=== PATIENT | female | born 1955 | race Caucasian/White ===

== ENCOUNTER 2020-04-09 12:35 | Outpatient (REF) | payer MEDICARE, SELFPAY ==
--- NOTE | 2020-04-09 12:47 | XR_ITS ---
EXAMINATION: XR PELVIS CLINICAL INFORMATION: Traumatic injury of the sacrum. COMPARISON: 09/22/2016 TECHNIQUE: AP view of the pelvis. FINDINGS: There are degenerative changes of the bilateral sacroiliac joints but both appear patent. The sacral ala are intact with no displaced sacral fracture seen. Mild degenerative arthrosis of the bilateral hips, left greater than right. XR/XR pelvis 1-2V IMPRESSION: No acute osseous abnormality of the pelvis or sacrum. Mild degenerative changes.
== END 2020-04-09 12:36 | disposition home or self-care (01) ==
LOC: HO.XRAY 12:35
PROVIDERS: PCP Internal Medicine; Visit Provider Physician Assistant
DX: S39.93XA Unspecified injury of pelvis, initial encounter (principal); X58.XXXA Exposure to other specified factors, initial encounter; R10.2 Pelvic and perineal pain; M53.3 Sacrococcygeal disorders, not elsewhere classified
CPT/HCPCS: 72170

== ENCOUNTER 2020-04-17 10:48 | Outpatient (REF) | payer MEDICARE, SELFPAY ==
--- NOTE | 2020-04-17 10:51 | CT_ITS ---
EXAMINATION: CT LUMBAR SPINE WITHOUT CONTRAST CLINICAL INFORMATION: Evaluate for fracture sacrum or coccyx. COMPARISON: None TECHNIQUE: Axial 3 mm thin and reformatted 2 mm thin sagittal and coronal images of sacral spine were obtained from L4-L5 disc level through the coccyx region. This CT examination was performed using dose optimization techniques as appropriate, variously including the following: *Automated exposure control *Adjustment of mA and/or kV according to patient size (this includes techniques or standardized protocols for targeted exams where dose is matched to indication/reason for exam; i.e. extremities or head) *Use of iterative reconstruction technique DLP; 294 mGy-cm FINDINGS: On sagittal reconstructed images the vertebral alignment is maintained. There is loss of L5-S1 disc height with vacuum disc phenomena. Small focal endplate Schmorl's node is seen at L4-L5 disc level. The sacral vertebral heights are normal. No visible acute fracture, dislocation or subluxation seen. No lytic process seen. There is a focal sclerotic density at S2 vertebra likely a small bone island. There is mild bilateral L4-L5 and L5-S1 facet joint arthropathy and hypertrophy. Visualized pelvic bones and bilateral hip joints are unremarkable. CT/CT lumbar spine wo con IMPRESSION: No visible acute fracture, dislocation or subluxation of sacral or coccygeal spine. Degenerative disc changes L5-S1 disc level with vacuum disc phenomena and mild L4-L5 and L5-S1 facet joint arthropathy.
== END 2020-04-17 10:49 | disposition home or self-care (01) ==
LOC: HO.CT 10:48
PROVIDERS: PCP Internal Medicine; Visit Provider Physician Assistant
DX: S39.92XS Unspecified injury of lower back, sequela (principal)
CPT/HCPCS: 72131

== ENCOUNTER 2020-06-15 12:51 | Outpatient (REF) | payer MEDICARE, SELFPAY ==
[2020-06-15 13:14] LABS: MANUAL DIFF FLAG NO
[2020-06-15 13:18] LABS: Basophils Percent Auto 0.8 % (0-2); Eosinophils Absolute Auto 0.1 X10*3/uL (0.0-0.4); Eosinophils Percent Auto 1.9 % (0-4); Hematocrit 39.3 % (37-47); Hemoglobin 12.8 g/dl (12.0-16.0); Imm Gran Abs Auto 0.01 X10*3/uL (0.00-0.03); Imm Gran Pct Auto 0.2 % (0.0-0.4); Lymphocytes Absolute Auto 1.3 X10*3/uL (1.2-4.9); Lymphocytes Percent Auto 24.6 % (20-40); Mean Corpuscular HGB Conc 32.6 g/dl (31.0-35.0); Mean Corpuscular Hemoglobin 30.4 pg (27.0-33.0); Mean Corpuscular Volume 93.3 fL (80-98); Mean Platelet Volume 9.6 fL (9.4-12.3); Monocytes Absolute Auto 0.5 X10*3/uL (0.1-1.2); Monocytes Percent Auto 10.5 % (2-11); Neutrophils Absolute Auto 3.2 X10*3/uL (2.0-8.3); Platelet Count 312 X10*3/uL (160-400); Red Blood Count 4.21 X10*6/uL (4.20-5.50); Red Cell Distribution Width 13.1 % (11.0-16.0); White Blood Count 5.2 X10*3/uL (4.8-10.8)
[2020-06-15 13:58] LABS: Alanine Aminotransferase 18 U/L (0-31); Albumin Level 4.4 g/dL (3.5-5.0); Alkaline Phosphatase 84 U/L (39-117); Anion Gap 12 (12-20); Aspartate Amino Transferase 28 U/L (5-31); Bilirubin Total 0.8 mg/dL (0.0-1.0); Blood Urea Nitrogen 16 mg/dL (9-16); Calcium 9.5 mg/dL (8.4-10.2); Carbon Dioxide 30 mmol/L (22-29); Chloride 104 mmol/L (96-108); Cholesterol 238 mg/dL; Estimated Glomerular Filt Rate > 60; Glucose Random 77 mg/dL (60-115); HDL Cholesterol 88 mg/dL; LDL Cholesterol Calculated 137 mg/dl; Potassium 5.1 mmol/L (3.3-5.1); Sodium 141 mmol/L (135-145); Total Protein 6.8 g/dL (6.5-8.0); Triglycerides 66 mg/dL
[2020-06-15 14:16] LABS: Vitamin D 25-OH Total 55.3 ng/mL (>30)
== END 2020-06-15 12:52 | disposition home or self-care (01) ==
LOC: HO.LAB 12:51
PROVIDERS: PCP Internal Medicine; Visit Provider Internal Medicine
DX: Z00.00 Encounter for general adult medical examination without abnormal findings (principal); Z13.6 Encounter for screening for cardiovascular disorders; Z13.820 Encounter for screening for osteoporosis
CPT/HCPCS: 36415; 80053; 80061; 82306; 85025

== ENCOUNTER 2020-06-19 15:16 | Outpatient (REF) | payer MEDICARE, SELFPAY ==
--- NOTE | ~2020-06-19 | MM_ITS ---
EXAMINATION: MM SCREENING DIGITAL BREAST TOMOSYNTHESIS, BILATERAL CLINICAL INFORMATION: Screening. Asymptomatic. The lifetime risk of breast cancer based on the Tyrer-Cuzick Model is 5%. COMPARISON: Mammography: 06/14/2019, 09/30/2016 TECHNIQUE: Digital breast tomosynthesis is performed in both the craniocaudal and mediolateral oblique views along with computer-aided detection (CAD). Synthesized 2D images are generated from the tomosynthesis. FINDINGS: The breasts are heterogeneously dense, which may obscure small masses (ACR BI-RADS breast composition Category c). There are no significant masses, abnormal calcifications, or other abnormalities. Parenchymal pattern is similar to prior exams. The axilla and skin contours are unremarkable. MM/MM tomosynthesis screening BI IMPRESSION: No mammographic evidence of malignancy. ASSESSMENT: BI-RADS 1: Negative RECOMMENDATION: Routine annual mammography screening. This patient's information was entered into a reminder system with a target due date for their next mammogram.
== END 2020-06-19 15:17 | disposition home or self-care (01) ==
LOC: HO.MAMMO 15:16
PROVIDERS: PCP Internal Medicine; Visit Provider Internal Medicine
DX: Z12.31 Encounter for screening mammogram for malignant neoplasm of breast (principal)
CPT/HCPCS: 77063; 77067

== ENCOUNTER 2020-08-23 18:19 | Emergency (ER) | payer MEDICARE, SELFPAY ==
--- NOTE | ~2020-08-23 | XR_ITS ---
EXAMINATION: XR WRIST, RIGHT CLINICAL INFORMATION: Wrist pain, status post fall. COMPARISON: None TECHNIQUE: Four views of the right wrist. FINDINGS: Subtle lucency and cortical angulation of the dorsal aspect of the distal radius, seen on the lateral projection. Overlying mild soft tissue swelling. In addition, there is subtle lucency along the lateral aspect of the distal radial metaphysis on the frontal projections. These findings could represent a subtle fracture. No additional discrete fractures identified. Mild spurring at the 1st CMC joint. Ulnar negative variance. XR/XR wrist RT min 3V IMPRESSION: Subtle findings in the distal radius, could represent a subtle undisplaced fracture. Please clinically correlate. Recommend short-term follow-up imaging for reassessment.
[2020-08-23 18:31] VITALS: BP 149/71; PULSE 80; RESP 18; TEMP 36.6; O2SAT 99; BMI 21.7
--- NOTE | 2020-08-23 19:25 | ED_ITS ---
HPI - Extremity Problem General Chief complaint: Extremity Injury, Upper Stated complaint: fall Time Seen by Provider: 08/23/20 19:25 Source: patient Mode of arrival: ambulatory Limitations: no limitations History of Present Illness HPI Narrative: Patient is a 64-year-old female with no significant past medical history complaining of right wrist pain. Patient states she was playing pickleball and tripped over her right foot and landed falling on her outstretched right hand. She states it was immediately painful, she is unable to move her wrist and has pain in her wrist when she moves her fingers. She states the pain is approximately a 7/10 but she will take medication when she gets home. She does have a prior injury on the distal ulna for which she needed surgery and has a chronic large bulge in that area. She had hand surgery in the past for that issue, Dr. Luna. Related Data Allergies Allergy/AdvReac Type Severity Reaction Status Date / Time Sulfa (Sulfonamide Allergy Mild UNKNOWN Verified 08/23/20 19:12 Antibiotics) nut - unspecified [nut] Allergy Unknown THROAT Verified 08/23/20 19:12 SWELLING erythromycin base AdvReac Mild VOMITING/STOMACH Verified 08/23/20 19:12 [Erythromycin Base] PAIN Review of Systems Review of Systems: Yes all other systems are reviewed and are negative [facility] Past Medical History Medical History Asthma Social History Social History Advance Directives: No Advance Directives Information Provided: No Physical Exam Vital Signs: Vital Signs: Last Vital Signs Temp 97.9 F 08/23/20 18:31 Pulse 80 08/23/20 18:31 Resp 18 08/23/20 18:31 BP 149/71 H 08/23/20 18:31 Pulse Ox 99 08/23/20 18:31 Body Mass Index 21.7 Const: General: cooperative, healthy appearing, comfortable and no acute distress Nutritional Appearance: average body habitus Orientation/consciousness: patient oriented x3 HENMT: Head: Yes normal to inspection, Yes No palpable skull fracture present, Yes normocephalic and Yes atraumatic Eyes: General: appearance normal, both eyes and all related structures Resp: Effort & Inspection: normal respiratory effort and able to speak in complete sentences Neuro: General: patient oriented x3 Extrem: Right upper extremity: wrist Details: normal to inspection, tenderness Location: of the distal radius and of the anatomic snuffbox, abnormal ROM Details: pain with active ROM during Details: with extension, with flexion, with ABduction and with ADduction and pain with passive ROM during Details: with extension, with flexion, with ABduction and with ADduction, normal vascular exam and radial pulse present; no unusual warmth and no abrasions and Extremity exam: right hand Details: normal to inspection, normal capillary refill, neuromotor exam normal, neurosensory exam normal, tendon exam normal and normal ROM of fingers; no tenderness, no unusual warmth, swelling, no abrasions, no lacerations, no ecchymosis, no foreign bodies and no puncture wound Course Reevaluation(s) Reevaluation #1: Text to Ortho, Ta-Emily Parkseuse xrays and pt info - to confirm sugar tons splint with follow up in a few days for additional imaging. She agrees with plan and will consult with Dr Joseph tomorrow for follow up date. Time: 19:51 Procedures Orthopedic Splinting/Casting Injury #1: Side: right Upper Extremity Injury Location: wrist Upper Extremity Immobilizer: sugar tong splint MDM - Extremity (Nontraumatic) Imaging Data right wrist x-ray: Attestation: I personally reviewed and interpreted this imaging study as follows: My impression: questionable fx distal radius Radiologist's impression: [address] [id number] ReportSigned Patient: Jyoti LongoriaMR#: [id number]: 5Acct:[id number]/Sex: 64 / FADM Date: 08/23/20Loc: HO.EDAttending Dr: Ordering Physician: Generic ED Physician Date of Service: 08/23/20 Procedure(s): XR wrist RT min 3V Accession Number(s): [id number] cc: Generic ED Physician~ EXAMINATION: XR WRIST, RIGHT CLINICAL INFORMATION: Wrist pain, status post fall. COMPARISON: None TECHNIQUE: Four views of the right wrist. FINDINGS: Subtle lucency and cortical angulation of the dorsal aspect of the distal radius, seen on the lateral projection. Overlying mild soft tissue swelling. In addition, there is subtle lucency along the lateral aspect of the distal radial metaphysis on the frontal projections. These findings could represent a subtle fracture. No additional discrete fractures identified. Mild spurring at the 1st CMC joint. Ulnar negative variance. XR/XR wrist RT min 3V IMPRESSION: Subtle findings in the distal radius, could represent a subtle undisplaced fracture. Please clinically correlate. Recommend short-term follow-up imaging for reassessment. Dictated By:TERRELL SUNSHINE MDSigned By:<Electronically signed by TERRELL SUNSHINE MD in OV>08/23/201914 DD/ 54TD/TT: Human Resources Temp: Discharge Plan Discharge Clinical Impression: Distal radius fracture, right Qualifiers: Encounter type: initial encounter Fracture type: closed Fracture morphology: unspecified fracture morphology Qualified Code(s): S52.501A - Unspecified fracture of the lower end of right radius, initial encounter for closed fracture Patient Disposition: Home, Self-Care Instructions: Wrist Fracture in Adults (ED), Splint Care (ED) Additional Instructions: Please be sure to follow up with either our orthopedic doctor or one of your choosing [facility] for additional imaging to clarify injury. You may alternate Tylenol and ibuprofen for your pain. Referrals: Quan Finley MD [Physician] - 2 days (additional imaging and care)
--- NOTE | 2020-08-23 20:21 | PC.NURSE ---
pt fitted with sugar tong splint. tolerated will and has good csm of fingers afterwards. ice applied ontop of spint. plans to f/u with hand surgeon.
== END 2020-08-23 20:53 | disposition home or self-care (01) ==
PROVIDERS: Emergency Provider Internal Medicine; PCP Internal Medicine
DX: S52.501A Unspecified fracture of the lower end of right radius, initial encounter for closed fracture (principal); M79.601 Pain in right arm; W01.0XXA Fall on same level from slipping, tripping and stumbling without subsequent striking against object, initial encounter; Y93.9 Activity, unspecified; Y92.9 Unspecified place or not applicable; Y99.9 Unspecified external cause status
CPT/HCPCS: 29105; 73110; 99283

== ENCOUNTER 2020-08-31 22:32 | Emergency (ER) | payer MEDICARE, SELFPAY ==
[2020-08-31 22:35] VITALS: BP 130/73; PULSE 60; RESP 16; TEMP 36.7; O2SAT 98; BMI 21.8
--- NOTE | 2020-08-31 23:27 | ED.HEATRA ---
HPI - Head Injury General Chief complaint: Head Injury Stated complaint: head lac from fall Source: patient Mode of arrival: ambulatory Limitations: no limitations History of Present Illness HPI Narrative: 64-year-old female with no significant past medical history presents with laceration to the back of her head after falling over while playing pickleball. Does not report any alcohol use, states she just tripped over her own feet. She does not report losing consciousness, denies any prodromal symptoms, and has a cast to the right wrist. MD Complaint: head injury Onset (ago): hour(s) (Within the hour of arrival) Mechanism of Injury: sports related injury Place: home Loss of Consciousness: no Location of injury: occipital Severity: moderate Severity scale (1-10): 4 Quality: dull and aching Radiation: none Other Injuries: none Associated symptoms: denies other symptoms Related Data Allergies Allergy/AdvReac Type Severity Reaction Status Date / Time Sulfa (Sulfonamide Allergy Mild UNKNOWN Verified 08/23/20 19:12 Antibiotics) nut - unspecified [nut] Allergy Unknown THROAT Verified 08/23/20 19:12 SWELLING erythromycin base AdvReac Mild VOMITING/STOMACH Verified 08/23/20 19:12 [Erythromycin Base] PAIN Review of Systems Review of Systems: Constitutional: No Fever, No Chills ENT/Mouth: No Ear Pain, No Hoarseness, No sore throat Eyes: No Eye Pain, No Swelling, No Redness, No Foreign Body Cardiovascular: No Chest Pain, No SOB Respiratory: No Cough, No Dyspnea Gastrointestinal: No Nausea, No Vomiting, No Diarrhea, No abdominal Pain Genitourinary: No Dysuria, No Hematuria Musculoskeletal: positive scalp pain, No Myalgias, No Joint Swelling Skin: Positive laceration to the occipital scalp, No rash Neuro: No Weakness, No Numbness, No Paresthesias, No Loss of Consciousness, No Dizziness, No Headache Psych: No Anxiety/Panic, No Depression Heme/Lymph: no easy bruising, no Lymphadenopathy Endocrine: No Polyuria, No Polydipsia PMFSH Past Medical History Attestation statement: The following information was validated with the patient. Source: old records reviewed Medical History Asthma Social History Social History Advance Directives: No Advance Directives Information Provided: No Physical Exam Vital Signs: Vital Signs: Last Vital Signs Temp 98.0 F 08/31/20 22:35 Pulse 60 08/31/20 22:35 Resp 16 08/31/20 22:35 BP 130/73 08/31/20 22:35 Pulse Ox 98 08/31/20 22:35 Body Mass Index 21.8 Appearance: Alert. Oriented X3. No acute distress. Head: 2 cm laceration to the scalp occipital, Normal external exam. Normocephalic. Atraumatic. No Skinner signs noted. No raccoon eyes noted Eyes: PERRLA. EOMI. Conjunctiva and sclera normal. Eyelids normal. ENT: TM's Normal. Pharynx normal. Uvula midline. Moist mucous membranes. No trismus noted. No drooling noted. No muffled voice noted. Neck: Normal inspection. Neck supple. No adenopathy. Thyroid Normal. No meningeal signs. No neck mass noted. CVS: Normal heart rate and rhythm. Heart sound normal. No murmurs noted. Pulses equal to all extremities. Respiratory: No respiratory distress. Painless inspiration. Breath sounds normal. No wheezes/rales/rhonchi noted. Chest nontender. No accessory muscle usage noted or decreased air movement noted. Abdomen: Soft and nontender. Bowel sounds normal in all 4 quadrants. No distention noted. No organomegaly noted. No visible injury noted. Back: No CVA tenderness. Full range of motion noted. Skin: Skin warm and dry. Normal skin color. Normal skin turgor. No rashes/lesions/lacerations noted. Extremities: Right wrist in a cast for fracture, Extremities exhibit normal range of motion. Extremities nontender. Neuro: cranial nerves 2-12 intact, no focal neural deficits, strength 5/5 to all extremities, No motor deficit. No sensory deficit. Reflexes normal. Course Course Course Narrative: 64-year-old female presents with laceration to the scalp after falling while playing pickle ball just prior to arrival. She does have a cast to the right wrist, has a wrist fracture from an injury sustained while playing pickle ball. Patient respectfully declined CT scan, states that she will monitor for signs and symptoms of concussion, respectfully declines Tdap vaccine as she recently received COVID vaccine approximately 1 month ago and is still having intermittent symptoms of nausea and dizziness. Patient request laceration repair. Irrigated with copious amounts of normal saline, 2 chase used to close the wound, well-approximated. Patient verbalizes understanding of and agrees to plan of care discharge home. Procedures Laceration Laceration 1: Site: scalp Size (cm): 2 Description: linear Depth: simple, single layer Pre-repair: wound explored and irrigated extensively Size (cm): other (Chase) Number of sutures: 2 MDM - Head Injury MDM Narrative Medical decision making narrative: Laceration Differential Diagnosis Differential diagnosis: Likely concussion without loss of consciousness Medical Records Attestation: I reviewed the patient's medical records. Discharge Plan Discharge Clinical Impression: Laceration of scalp, Concussion Patient Disposition: Home, Self-Care Instructions: Concussion (ED), Staple Care (ED), Head Laceration (ED) Additional Instructions: You were evaluated for laceration to the scalp. Please return in 10 days to have chase removed. Monitor for signs and symptoms of dizziness, intractable nausea and vomiting, loss of balance, changes in vision, or any other concerning symptoms. These could be signs and symptoms of intracranial bleeding. You did respectfully declined the CT scan today. You respectfully declined a Tdap vaccine. Please follow-up with primary care physician in the next week. Thank you for choosing this emergency department for evaluation. Please follow-up with primary care physician as needed. Return to the emergency department for any new, concerning, or worsening symptoms. Interventions: ED Discharge Assessment Last Done: 08/31/20 23:42 Discharge Date/Time: 08/31/20 23:45
== END 2020-08-31 23:45 | disposition home or self-care (01) ==
PROVIDERS: Emergency Provider Internal Medicine; PCP Internal Medicine
DX: S01.01XA Laceration without foreign body of scalp, initial encounter (principal); S06.0X0A Concussion without loss of consciousness, initial encounter; W01.0XXA Fall on same level from slipping, tripping and stumbling without subsequent striking against object, initial encounter; Y93.73 Activity, racquet and hand sports; Y92.096 Garden or yard of other non-institutional residence as the place of occurrence of the external cause; Y99.9 Unspecified external cause status
CPT/HCPCS: 12001; 99284

== ENCOUNTER 2020-09-23 10:51 | Outpatient (REF) | payer MEDICARE, SELFPAY ==
--- NOTE | ~2020-09-23 | CT_ITS ---
EXAMINATION: CT HEAD WITHOUT CONTRAST CLINICAL INFORMATION: Injury to head. COMPARISON: None TECHNIQUE: Contiguous axial imaging was performed from the skull base to vertex without intravenous administration of contrast. This CT examination was performed using dose optimization techniques as appropriate, variously including the following: *Automated exposure control *Adjustment of mA and/or kV according to patient size (this includes techniques or standardized protocols for targeted exams where dose is matched to indication/reason for exam; i.e. extremities or head) *Use of iterative reconstruction technique DLP: 737 mGy-cm FINDINGS: There is no evidence of acute intracranial hemorrhage or territorial infarction. No abnormal mass effect or midline shift is seen. Wlalace to white matter differentiation is well preserved. No extra-axial fluid collections are identified. The ventricles are normal in size. There is no abnormal attenuation within the brain parenchyma. The osseous structures and soft tissues are normal. The mastoid air cells and visualized portions of the paranasal sinuses are well aerated. CT/CT head/brain wo con IMPRESSION: No acute intracranial process seen.
== END 2020-09-23 10:52 | disposition home or self-care (01) ==
LOC: HO.CT 10:51
PROVIDERS: PCP Internal Medicine; Visit Provider Internal Medicine
DX: S09.90XA Unspecified injury of head, initial encounter (principal)
CPT/HCPCS: 70450

== ENCOUNTER 2021-06-21 10:01 | Outpatient (REF) | payer MEDICARE, SELFPAY ==
--- NOTE | ~2021-06-21 | MM_ITS ---
EXAMINATION: MM SCREENING DIGITAL BREAST TOMOSYNTHESIS, BILATERAL CLINICAL INFORMATION: Screening. Asymptomatic. The lifetime risk of breast cancer based on the Tyrer-Cuzick Model is 4%. COMPARISON: Mammography: 06/19/2020, 06/14/2019, 09/30/2016 TECHNIQUE: Digital breast tomosynthesis is performed in both the craniocaudal and mediolateral oblique views along with computer-aided detection (CAD). Synthesized 2D images are generated from the tomosynthesis. FINDINGS: The breasts are heterogeneously dense, which may obscure small masses (ACR BI-RADS breast composition Category c). There are no significant masses, abnormal calcifications, or other abnormalities. Parenchymal pattern is similar to prior studies. There is no developing density or architectural abnormality. The axilla and skin contours are unremarkable. No significant changes. MM/MM tomosynthesis screening BI IMPRESSION: No significant changes from prior exams. ASSESSMENT: BI-RADS 1: Negative RECOMMENDATION: Routine annual mammography screening. This patient's information was entered into a reminder system with a target due date for their next mammogram.
== END 2021-06-21 10:02 | disposition home or self-care (01) ==
LOC: HO.MAMMO 10:01
PROVIDERS: PCP Internal Medicine; Visit Provider Internal Medicine
DX: Z12.31 Encounter for screening mammogram for malignant neoplasm of breast (principal)
CPT/HCPCS: 77063; 77067

== ENCOUNTER 2021-10-06 16:50 | Outpatient (REF) | payer MEDICARE, SELFPAY ==
[2021-10-06 17:03] LABS: MANUAL DIFF FLAG NO
[2021-10-06 17:45] LABS: Basophils Percent Auto 0.5 % (0-2); Eosinophils Absolute Auto 0.1 X10*3/uL (0.0-0.4); Eosinophils Percent Auto 1.1 % (0-4); Hematocrit 33.5 % (37.0-47.0); Hemoglobin 10.3 g/dl (12.0-16.0); Imm Gran Abs Auto 0.02 X10*3/uL (0.00-0.03); Imm Gran Pct Auto 0.3 % (0.0-0.4); Lymphocytes Absolute Auto 1.1 X10*3/uL (1.2-4.9); Lymphocytes Percent Auto 15.1 % (20-40); Mean Corpuscular HGB Conc 30.7 g/dl (31.0-35.0); Mean Corpuscular Hemoglobin 28.1 pg (27.0-33.0); Mean Corpuscular Volume 91.3 fL (80.0-98.0); Mean Platelet Volume 9.5 fL (9.4-12.3); Monocytes Absolute Auto 0.7 X10*3/uL (0.1-1.2); Monocytes Percent Auto 9.9 % (2-11); Neutrophils Absolute Auto 5.4 x10*3/uL (2.0-8.3); Neutrophils Percent Auto 73.1 % (45-73); Platelet Count 349 X10*3/uL (160-400); Red Blood Count 3.67 X10*6/uL (4.20-5.50); Red Cell Distribution Width 15.4 % (11.0-16.0); White Blood Count 7.4 X10*3/uL (4.8-10.8)
[2021-10-06 18:19] LABS: Alanine Aminotransferase 19 U/L (0-31); Albumin Level 4.2 g/dL (3.5-5.0); Alkaline Phosphatase 96 U/L (39-117); Anion Gap 13 (12-20); Aspartate Amino Transferase 30 U/L (5-31); Bilirubin Total 0.3 mg/dL (0.0-1.0); Blood Urea Nitrogen 16 mg/dL (9-16); Calcium 9.3 mg/dL (8.4-10.2); Carbon Dioxide 27 mmol/L (22-29); Chloride 106 mmol/L (96-108); Estimated Glomerular Filt Rate > 60; Glucose Random 83 mg/dL (60-115); Potassium 4.5 mmol/L (3.3-5.1); Sodium 141 mmol/L (135-145); Total Protein 6.4 g/dL (6.5-8.0)
[2021-10-06 18:35] LABS: Erythrocyte Sedimentation Rate 6 MM/HR (0-20)
== END 2021-10-06 16:51 | disposition home or self-care (01) ==
LOC: HO.LAB 16:50
PROVIDERS: PCP Internal Medicine; Visit Provider Internal Medicine
DX: R63.4 Abnormal weight loss (principal)
CPT/HCPCS: 36415; 80053; 84443; 85025; 85652

== ENCOUNTER 2021-10-08 08:20 | Outpatient (REF) | payer MEDICARE, SELFPAY ==
--- NOTE | ~2021-10-08 | FL_ITS ---
EXAMINATION: XR FLUOROSCOPY UPPER GI WITH AIR CLINICAL INFORMATION: Abnormal weight loss. COMPARISON: None TECHNIQUE: Routine upper GI air-contrast study was performed in upright and lying position. FINDINGS: Following oral administration of thick barium and effervescent granules there is normal propagation of bolus from the oral cavity through the pharynx, esophagus into stomach without any evidence of obstruction, narrowing or stricture. On placing patient supine and prone the course, caliber and peristalsis of the stomach duodenal bulb and the CBD is normal. There is mild gastroesophageal reflux without hiatal hernia. The mucosal pattern of esophagus, stomach and the duodenum is normal. FLUOROSCOPY TIME: 1.6 minutes DOSE AREA PRODUCT: 9.095 uGy-m2 (microgray-meter squared) FL/FL upper GI w air IMPRESSION: Moderate gastroesophageal reflux without hiatal hernia.
[2021-10-08 15:45] LABS: INTERNATIONAL NORM RATIO 0.9 (0.9-1.1); Prothrombin Time 10.1 SEC (10.0-13.1)
[2021-10-08 16:04] LABS: Iron 23 mcg/dL (30-160); Percent Iron Saturation 6 % (15-50); Total Iron Binding Capacity 417 mcg/dL (228-428); Unsaturated Iron Binding 394 ug/dL
[2021-10-08 16:29] LABS: Ferritin 8 ng/mL (10-250)
[2021-10-08 16:45] LABS: Folate > 20.0 ng/mL (> or = 4.0); Vitamin B12 877 pg/mL (200-900)
== END 2021-10-08 08:21 | disposition home or self-care (01) ==
LOC: HO.XRAY 08:20
PROVIDERS: Absent Provider Physician Assistant; PCP Internal Medicine; Visit Provider Internal Medicine
DX: D64.9 Anemia, unspecified (principal); R63.4 Abnormal weight loss
CPT/HCPCS: 36415; 74246; 82607; 82728; 82746; 83540; 85610

== ENCOUNTER 2021-10-20 15:30 | Outpatient (REF) | payer MEDICARE, SELFPAY ==
[2021-10-20 16:31] LABS: IDNOW Serial# 08D9AD1C
[2021-10-20 16:32] LABS: COVID-19 Test Negative (Negative)
== END 2021-10-20 15:31 | disposition home or self-care (01) ==
LOC: HO.LAB 15:30
PROVIDERS: Visit Provider Internal Medicine
DX: Z20.822 Contact with and (suspected) exposure to COVID-19 (principal)
CPT/HCPCS: 87635; C9803

== ENCOUNTER 2021-10-20 15:51 | Outpatient (REF) | payer MEDICARE, SELFPAY | END 2021-10-20 15:52 | disposition home or self-care (01) | LOC: HO.LAB 15:51 | PROVIDERS: PCP Internal Medicine; Visit Provider Physician Assistant | DX: Z13.89 Encounter for screening for other disorder (principal) ==

== ENCOUNTER 2022-01-18 15:55 | Outpatient (REF) | payer MEDICARE, SELFPAY ==
--- NOTE | ~2022-01-18 | XR_ITS ---
EXAMINATION: XR RIBS, BILATERAL CLINICAL INFORMATION: Chest and bilateral ribs. COMPARISON: None TECHNIQUE: 3 views of the bilateral ribs were obtained. FINDINGS: The lungs are well expanded and clear of acute pneumonic process. The heart size and pulmonary vascularity are normal. No gross bony abnormality seen. Multiple views of bilateral ribs reveal no visible rib fracture or bony abnormality. The soft tissues are normal. XR/XR ribs BI min 4V w CXR1V IMPRESSION: Unremarkable chest and bilateral rib exam.
[2022-01-18 18:22] LABS: Appearance Urine Clear; Color Urine Yellow; Glucose Urine UA Negative (Negative); Leukocyte Esterase Urine Negative (Negative); Nitrite Urine Negative (Negative); PH 7.5 (5.0-9.0); Urine Blood Negative (Negative); Urine Ketones Negative (Negative); Urine Protein Negative (Neg-Trace)
== END 2022-01-18 15:56 | disposition home or self-care (01) ==
LOC: HO.MANLDS 15:55
PROVIDERS: Visit Provider Physician Assistant
DX: R07.81 Pleurodynia (principal); R30.0 Dysuria
CPT/HCPCS: 71111; 81003

== ENCOUNTER → 2022-01-24 13:00 | Outpatient (REF) | payer MEDICARE, SELFPAY ==
--- NOTE | 2022-01-24 13:10 | CA_ITS ---
Transthoracic Echocardiogram Patient (Last, First, Middle): Jyoti Longoria, Gender: Female Date of : 1955 Age: 66 Procedure Date: 01/24/2022 Procedure Type: Transthoracic Echocardiogram Location: OP Height: 157.48 cm Weight: 49.9 kg BSA: 1.48 m2 Heart Rate: bpm BP: 110 / 60 mmHg Leader Tier: DECLAN Referring MD: Brianna BAL Symptoms: R07.89 Study Quality: Adequate ECG Rhythm: Sinus Conclusions: - The left ventricular systolic function is normal. The visually estimated ejection fraction is between 60-65%. - No obvious valvular pathology seen on this study. Findings Left Ventricle Normal left ventricular cavity size. There is normal left ventricular wall thickness. The left ventricular systolic function is normal. The visually estimated ejection fraction is between 60-65%. There is no evidence of regional wall motion abnormalities. Diastolic function is normal for age. Right Ventricle Normal right ventricular cavity size and systolic function. Atria Both atria are normal in size. Aortic Valve There is a normal trileaflet aortic valve. There is no aortic valve stenosis. There is no aortic valve regurgitation. Mitral Valve The mitral valve appears normal. There is trace mitral valve regurgitation. There is no mitral valve stenosis. Pulmonic Valve The pulmonic valve is likely normal. Tricuspid Valve Normal tricuspid valve structure. There is mild tricuspid valve regurgitation. There is no evidence of pulmonary hypertension. Great Vessels The asc aorta is normal in size. Venous The inferior vena cava is normal in size and collapses greater than 50% with inspiration. Pericardium/Pleural There is no evidence of pericardial effusion. Prior Study Comparison No prior study available for comparison. Recommendations, Care & Conclusions No obvious valvular pathology seen on this study. Measurements 2D Linear Measurements IVSd: 0.75 0.6-0.9/0.6-1.0 cm LVIDd: 3.81 3.9-5.3/4.2-5.9 cm LVIDd Index: 2.57 2.4-3.2/2.2-3.1 cm/m2 LVIDs: 2.31 2.0-3.6 cm LVPWd: 0.96 0.7-1.1 cm LA Diam: 2.90 2.7-3.8/3.0-4.0 cm LAIDs Index: 1.96 1.5-2.3 cm/m2 LV Mass: 117.03 67-162/88-224 g LV Mass Index: 79.07 43-95/49-115 g/m2 LVOT Diam: 2.00 3.0+(-)1.3 cm Mitral Valve MV Pk E: 0.69 MV PK A: 0.45 MV Decel Time: 181.00 E/A: 1.50 E'Lateral: 9.14 E'Medial: 8.70 E/E' Med: 7.90 E/E' Lat: 7.50 PHT: 53.00 MVA PHT: 4.15 Decel [place]: 3.79 Aortic Valve AoV Pk Jameel: 1.31 AoV Mn Jameel: 0.98 AoV VTI: 0.31 AoV Pk Grad: 7.00 Aov Mn Grad: 4.00 ESSENCE Cont.VTI: 1.72 LVOT LVOT Pk Jameel: 0.80 LVOT Mn Jameel: 0.51 LVOT VTI: 0.17 LVOT Pk Grad: 3.00 LVOT Mn Grad: 1.00 LVOT Diam: 2.00 LVOT Area: 3.14 Diastolic Function MV Pk E: 0.69 MV Pk A: 0.45 E/A: 1.50 E'Medial: 8.70 E/E' Med: 7.90 E' Laterial: 9.14 E/E' Lat: 7.50 Right Ventricle TAPSE (mm): 24.60 TVS' Jameel: 12.60 Tricuspid Valve TR Pk Jameel: 2.52 TR Pk Grad: 25.00 RA Press: 3.00 RVSP: 28.00 Great Vessels Aorta Sinus of Valsalva: 3.50 2.0-3.[address] [place]: 2.48 1.7-3.4 cm Ao Asc: 2.90 2.1-3.4 cm Updated in Other Vendor System with Status of Final Alfonso Wilson MD electronically signed on 01/24/2022 2:53:39 PM with status of Final
== END ==
LOC: HO.CARD 13:00
PROVIDERS: Visit Provider Physician Assistant
DX: R07.89 Other chest pain (principal)
CPT/HCPCS: 93306

== ENCOUNTER 2022-02-17 08:49 | Outpatient (REF) | payer MEDICARE, SELFPAY ==
--- NOTE | ~2022-02-17 | CT_ITS ---
EXAMINATION: CT CHEST WITHOUT CONTRAST CLINICAL INFORMATION: Dyspnea. COMPARISON: Chest x-ray 01/18/2022. TECHNIQUE: Multidetector volumetric CT imaging of the chest was done. Axial MIP volume rendering provided. Sagittal and coronal reformatted images were obtained. This CT examination was performed using dose optimization techniques as appropriate, variously including the following: *Automated exposure control *Adjustment of mA and/or kV according to patient size (this includes techniques or standardized protocols for targeted exams where dose is matched to indication/reason for exam; i.e. extremities or head) *Use of iterative reconstruction technique DLP: 106 mGy-cm FINDINGS: HIGHWAY TRUCK DRIVER: Well-inflated lungs. LUNGS: The lungs are well expanded with plate-like atelectasis/focal small consolidation in the right middle lobe. There are patchy atelectatic changes seen in the posterior segment of right upper lobe, axial image 14/4. There are multiple small pulmonary nodules. 3 mm nodule, likely debris within the bronchial in left upper lobe axial image 173/7, 2 mm nodule left upper lobe axial image 263/7, 2 mm nodule right upper lobe medially axial image 188/7, 3 mm nodule right middle lobe axial image 286/7, 1 mm nodule right middle lobe axial image 314/7. There are several additional 1 mm nodules visualized. MEDIASTINUM: The heart size and the great vessels are normal caliber. No pericardial effusion seen. Central trachea and bronchi are widely patent. There are small shotty lymph nodes in the aortic window and the pretracheal space with the largest lymph node measuring 1.0 cm in the aortic window axial image 23/3. CORONARY ARTERY CALCIFICATION: None visualized on this study. PLEURA: There is no pleural effusion. No pleural mass or thickening. AXILLA: No lymphadenopathy. UPPER ABDOMEN: The visualized liver, spleen, pancreas, and bilateral adrenal glands are unremarkable. OSSEOUS STRUCTURES: No aggressive lytic or sclerotic process seen. CT/CT chest wo IV con IMPRESSION: Focal atelectasis/small consolidation right middle lobe medially. Mild atelectatic changes right upper lobe laterally. Multiple small pulmonary nodules in the range of 2-3 mm, as described above. Based on clinical history, a followup can be performed in 1 year. Fleischner guidelines were followed.
== END 2022-02-17 08:50 | disposition home or self-care (01) ==
LOC: HO.CT 08:49
PROVIDERS: Visit Provider Physician Assistant
DX: R06.00 Dyspnea, unspecified (principal)
CPT/HCPCS: 71250

== ENCOUNTER 2022-06-01 16:45 | Outpatient (REF) | payer MEDICARE, SELFPAY ==
--- NOTE | ~2022-06-01 | XR_ITS ---
EXAMINATION: XR KNEE, RIGHT CLINICAL INFORMATION: Pain COMPARISON: None TECHNIQUE: Three views of the right knee. FINDINGS: Bone alignment is normal. No fracture or dislocation. Normal femoral tibial joints. Slight lateral tilt of the patella. No joint effusion. XR/XR knee RT 3V IMPRESSION: Slight lateral tilt of the patella on the sunrise view otherwise unremarkable exam.
== END 2022-06-01 16:46 | disposition home or self-care (01) ==
LOC: HO.XRAY 16:45
PROVIDERS: PCP Internal Medicine; Visit Provider Internal Medicine
DX: M25.561 Pain in right knee (principal)
CPT/HCPCS: 73562

== ENCOUNTER 2022-06-23 10:26 | Outpatient (REF) | payer MEDICARE, SELFPAY ==
--- NOTE | ~2022-06-23 | MM_ITS ---
EXAMINATION: MM SCREENING DIGITAL BREAST TOMOSYNTHESIS, BILATERAL CLINICAL INFORMATION: Screening. Asymptomatic. The lifetime risk of breast cancer based on the Tyrer-Cuzick Model is 6%. COMPARISON: Mammography: 06/21/2021 and studies dating back to 09/30/2016 TECHNIQUE: Digital breast tomosynthesis is performed in both the craniocaudal and mediolateral oblique views along with computer-aided detection (CAD). Synthesized 2D images are generated from the tomosynthesis. FINDINGS: The breasts are extremely dense, which lowers the sensitivity of mammography (ACR BI-RADS breast composition Category d). There are no new significant masses, abnormal calcifications, or other abnormalities. There is question of abnormal density with possible calcifications about the lateral aspect of the right breast on craniocaudal projection. However, a second craniocaudal projection demonstrated this to have represented superimposition of fibroglandular tissue. MM/MM tomosynthesis screening BI IMPRESSION: No significant changes from prior exam. ASSESSMENT: BI-RADS 1: Negative RECOMMENDATION: Routine annual mammography screening. This patient's information was entered into a reminder system with a target due date for their next mammogram.
== END 2022-06-23 10:27 | disposition home or self-care (01) ==
LOC: HO.MAMMO 10:26
PROVIDERS: PCP Internal Medicine; Visit Provider Internal Medicine
DX: Z12.31 Encounter for screening mammogram for malignant neoplasm of breast (principal)
CPT/HCPCS: 77063; 77067

== ENCOUNTER 2023-03-20 14:35 | Emergency (ER) | payer MEDICARE, SELFPAY ==
[2023-03-20 15:06] VITALS: BP 165/68; PULSE 59; RESP 18; TEMP 36.2; O2SAT 98; BMI 21.0
--- NOTE | 2023-03-20 15:07 | ED_ITS ---
HPI - General Adult General Chief complaint: Wound/Laceration Stated complaint: Thumb lac Time Seen by Provider: 03/20/23 17:38 History of Present Illness HPI narrative: Pt is a 67yo female who presents to the ED with a left thumb laceration. Pt states she was sharpening her knife and the guard slipped and she cut her thumb. Pt states she is up to date with her tetanus vaccine. Related Data Allergies Allergy/AdvReac Type Severity Reaction Status Date / Time Sulfa (Sulfonamide Allergy Mild UNKNOWN Verified 03/20/23 15:08 Antibiotics) nut - unspecified [nut] Allergy Unknown THROAT Verified 03/20/23 15:08 SWELLING erythromycin base AdvReac Mild VOMITING/STOMACH Verified 03/20/23 15:08 [Erythromycin Base] PAIN Review of Systems 2 Musculoskeletal: Musculoskeletal: Denies arthralgias, Denies numbness and Denies tingling Integumentary/Breasts: Skin/Breast: Reports wounds (laceration of left thumb) Neurologic: Denies numbness and Denies tingling PMFSH Past Medical History Medical History Asthma Social History Social History Advance Directives: No Advance Directives Information Provided: Yes Physical Exam ED Vital Signs: Vital Signs - 24 hr 03/20/23 15:06 Temperature 97.2 F Pulse Rate 59 Respiratory Rate 18 Blood Pressure 165/68 H Pulse Oximetry 98 Oxygen Delivery Method Room Air BMI result Body Mass Index 21.0 Extrem Right upper extremity: normal to inspection Left upper extremity: full ROM, normal capillary refill and hand Details: neuromotor exam normal, neurosensory exam normal, tendon exam normal and laceration (lateral left thumb 3cm) Hand/finger images: 2 1. approx 3 cm linear laceration Right lower extremity: normal to inspection Left lower extremity: normal to inspection Course Course Course Narrative: Patient complains of left thumb laceration No sign of tendon deficit, sensation intact This is rapid medical exam done in triage pending full evaluation and dispo by ER provider Medications Administered Discontinued Medications Generic Name Dose Route Start Last Admin Trade Name Freq PRN Reason Stop Dose Admin Lidocaine HCl 5 ml 03/20/23 17:54 03/20/23 17:59 Lidocaine Hcl 1 % Mpf 5 Ml Vial INFILTRATI 03/20/23 17:55 5 ml ONCE ONE Administration Procedures Laceration Laceration 1: Site: hand (lateral thumb) Side (If applicable): left Size (cm): 3 Description: linear Depth: simple, single layer Local Anesthetic: lidocaine 1% Amount of anesthesia used (mL): 3 Pre-repair: wound explored, irrigated extensively and deep structures intact Skin layer closed with: nylon Size (cm): 5-0 Number of sutures: 3 Technique: simple, interrupted Medical Decision Making Medical Decision Making MDM Narrative: 67-year-old female presents for evaluation of laceration to her left thumb. Appears quite superficial. Bleeding is controlled. No evidence of ligamentous injury. Patient has full range of motion. Patient's tetanus is up-to-date. See procedure note for wound repair Differential Diagnosis Differential Diagnoses: The differential diagnosis associated with the presentation includes (laceration requiring closure, laceration not requiring closure, well visit, tetanus exposure, tendon damage) Discharge Plan Discharge Clinical Impression: Laceration Patient Disposition: Home, Self-Care Instructions: Finger Laceration (ED) Additional Instructions: You had 3 sutures placed today. Keep the area clean and dry Return in 10-14 days to have the sutures removed Follow-up with your primary doctor Interventions: ED Discharge Assessment Last Done: 03/20/23 18:33 Discharge Date/Time: 03/20/23 18:34
[2023-03-20] MEDS: Lidocaine HCl 1 % MPF 5 ML VIAL INFILTRATI (17:59)
== END 2023-03-20 18:34 | disposition home or self-care (01) ==
PROVIDERS: Emergency Provider Emergency Medicine; PCP Internal Medicine
DX: S61.012A Laceration without foreign body of left thumb without damage to nail, initial encounter (principal); W26.0XXA Contact with knife, initial encounter; Y93.89 Activity, other specified; Y92.9 Unspecified place or not applicable; Y99.9 Unspecified external cause status
CPT/HCPCS: 12002; 99282; 99284

== ENCOUNTER 2023-05-25 12:05 | Outpatient (REF) | payer MEDICARE, SELFPAY ==
[2023-05-25 12:22] LABS: MANUAL DIFF FLAG NO
[2023-05-25 13:31] LABS: Basophils Absolute Auto 0.1 X10*3/uL (0.0-0.2); Basophils Percent Auto 0.9 % (0-2); Eosinophils Absolute Auto 0.1 X10*3/uL (0.0-0.4); Eosinophils Percent Auto 0.9 % (0-4); Hematocrit 42.1 % (37.0-47.0); Hemoglobin 13.3 g/dl (12.0-16.0); Imm Gran Abs Auto 0.02 X10*3/uL (0.00-0.03); Imm Gran Pct Auto 0.3 % (0.0-0.4); Mean Corpuscular HGB Conc 31.6 g/dl (31.0-35.0); Mean Corpuscular Hemoglobin 28.5 pg (27.0-33.0); Mean Corpuscular Volume 90.3 fL (80.0-98.0); Mean Platelet Volume 9.7 fL (9.4-12.3); Monocytes Absolute Auto 0.7 X10*3/uL (0.1-1.2); Monocytes Percent Auto 10.2 % (2-11); Neutrophils Absolute Auto 4.8 x10*3/uL (2.0-8.3); Neutrophils Percent Auto 72.7 % (45-73); Platelet Count 409 X10*3/uL (160-400); Red Blood Count 4.66 X10*6/uL (4.20-5.50); Red Cell Distribution Width 15.4 % (11.0-16.0); White Blood Count 6.7 X10*3/uL (4.8-10.8)
[2023-05-25 14:00] LABS: Alanine Aminotransferase 17 U/L (0-31); Albumin Level 4.5 g/dL (3.5-5.0); Alkaline Phosphatase 104 U/L (39-117); Anion Gap 13 (12-20); Aspartate Amino Transferase 22 U/L (5-31); Bilirubin Total 0.6 mg/dL (0.0-1.0); Blood Urea Nitrogen 22 mg/dL (9-16); Calcium 9.6 mg/dL (8.4-10.2); Carbon Dioxide 28 mmol/L (22-29); Chloride 105 mmol/L (96-108); Cholesterol 253 mg/dL (<200); Estimated Glomerular Filt Rate > 60; Glucose Random 88 mg/dL (60-115); HDL Cholesterol 99 mg/dL (>40); Iron 37 mcg/dL (30-160); LDL Cholesterol Calculated 144 mg/dL (<100); Percent Iron Saturation 9 % (15-50); Potassium 4.3 mmol/L (3.3-5.1); Sodium 142 mmol/L (135-145); Total Iron Binding Capacity 403 mcg/dL (228-428); Total Protein 7.5 g/dL (6.5-8.0); Triglycerides 50 mg/dL (<150); Unsaturated Iron Binding 366 ug/dL
[2023-05-25 14:04] LABS: Ferritin 13 ng/mL (10-250); Vitamin D 25-OH Total 88.3 ng/mL (>30)
== END 2023-05-25 12:06 | disposition home or self-care (01) ==
LOC: HO.LAB 12:05
PROVIDERS: Visit Provider Internal Medicine
DX: Z00.00 Encounter for general adult medical examination without abnormal findings (principal); D50.9 Iron deficiency anemia, unspecified
CPT/HCPCS: 36415; 80053; 80061; 82306; 82728; 83540; 85025

== ENCOUNTER 2023-06-07 08:15 | Outpatient (REF) | payer MEDICARE, SELFPAY ==
--- NOTE | ~2023-06-07 | MM_ITS ---
EXAMINATION: BONE DENSITOMETRY CLINICAL INDICATION: Age-related osteoporosis without current pathological fracture. COMPARISON: This is the patient's baseline examination. TECHNIQUE: Using a [employer] DXA System (software version: 13.1) manufactured by [employer], dual-energy x-ray absorptiometry was performed of the lumbar spine and left hip. The images are of good technical quality. Summary results are attached. FINDINGS: LEFT FEMUR, NECK: BMD 0.619 g/cm2, Z-score -1.1, T-score -3.0, osteoporosis. LEFT FEMUR, TOTAL: BMD 0.721 g/cm2, Z-score -0.6, T-score -2.3, osteopenia. AP SPINE L1-L4: BMD 1.385 g/cm2, Z-score 3.8, T-score 1.7, normal. IDENTIFIED RISK FACTORS: Menopause, osteoporosis, history of fracture (adult). HISTORY OF FRACTURE: Forearm. MEDICATIONS: Calcium supplements or multivitamin, vitamin D. MM/XR DEXA axial skeleton IMPRESSION: 1. DIAGNOSIS: Severe osteoporosis based on the lowest T-score value of -3.0 in the femoral neck and history of fracture applying World Health Organization criteria. 2. 10-YEAR FRACTURE RISK PREDICTION, FRAX: According to the guidelines, FRAX calculation should only be performed on patients in the osteopenia bone density category. Therefore, FRAX was not performed on this patient. 3. Treatment Recommendations: NOF guidelines recommend consideration for treatment in postmenopausal women and men age 50 and older presenting with the following: -A hip or vertebral (clinical or morphometric) fracture. -T-score less than or equal to -2.5 at the femoral neck or spine after appropriate evaluation to exclude secondary causes. -Low bone mass at the hip or spine and a 10-year fracture probability by FRAX of greater than or equal to 3% for hip fracture or greater than or equal to 20% for major osteoporotic fracture based on the [place] adapted WHO algorithm. 4. Other Recommendations: All treatment decisions require clinical judgment and consideration of individual patient factors, including patient preferences, comorbidities, previous drug use, risk factors not captured in the FRAX model (e.g. frailty, falls, vitamin D deficiency, increased bone turnover, interval significant decline in bone density) and possible under or overestimation of fracture risk by FRAX. Additional medical evaluation for secondary cause of low bone mineral density may be appropriate. FUTURE SCAN RECOMMENDATION: People with diagnosed cases of osteoporosis or at high risk for fracture should have regular bone mineral density tests. For patients eligible for Medicare, routine testing is allowed once every 2 years. The testing frequency can be increased to one year for patients who have rapidly progressing disease, those who are receiving or discontinuing medical therapy to restore bone mass, or have additional risk factors.
== END 2023-06-07 08:16 | disposition home or self-care (01) ==
LOC: HO.MAMMO 08:15
PROVIDERS: PCP Internal Medicine; Visit Provider Internal Medicine
DX: Z13.820 Encounter for screening for osteoporosis (principal); Z78.0 Asymptomatic menopausal state; M81.0 Age-related osteoporosis without current pathological fracture
CPT/HCPCS: 77080

== ENCOUNTER 2023-07-05 07:28 | Outpatient (REF) | payer MEDICARE, SELFPAY | END 2023-07-05 07:29 | disposition home or self-care (01) | LOC: HO.MAMMO 07:28 | PROVIDERS: PCP Internal Medicine; Visit Provider Internal Medicine | DX: Z12.31 Encounter for screening mammogram for malignant neoplasm of breast (principal) | CPT/HCPCS: 77063; 77067 ==

== ENCOUNTER → 2023-07-05 07:30 | Outpatient (BNV) | payer MEDICARE, SELFPAY | PROVIDERS: PCP Internal Medicine; Visit Provider Radiology Diagnostic Radiology | DX: Z12.31 Encounter for screening mammogram for malignant neoplasm of breast (principal) | CPT/HCPCS: 77063; 77067 ==

== ENCOUNTER 2024-03-04 15:53 | Outpatient (REF) | payer MEDICARE, SELFPAY ==
--- NOTE | ~2024-03-04 | XR_ITS ---
EXAMINATION: XR CHEST CLINICAL INFORMATION: Acute bronchitis COMPARISON: X-ray chest and ribs of 01/18/2022. TECHNIQUE: 2 views of the chest were obtained. FINDINGS: The lungs are well-inflated. There is no gross pneumothorax. Heart size is normal. Degenerative changes in the thoracic spine. No significant pleural effusion. No gross focal consolidation. XR/XR chest 2V IMPRESSION: No gross focal consolidation to suggest pneumonia. This study was presented today March 05, 2024 for interpretation. Stat results provided at this time as requested by referring provider. Electronically signed by: Safia Castellon MD 03/05/2024 10:55 AM HELGA
== END 2024-03-04 15:54 | disposition home or self-care (01) ==
LOC: HO.XRAY 15:53
PROVIDERS: PCP Internal Medicine; Visit Provider Physician Assistant
DX: J20.8 Acute bronchitis due to other specified organisms (principal)
CPT/HCPCS: 71046

== ENCOUNTER → 2024-07-31 11:05 | Outpatient (REF) | payer MEDICARE, SELFPAY ==
--- OUTSIDE RECORDS SUMMARY | 2024-07-31 13:23 | XMS_ITS | Continuity of Care Document ---
Author Organization [facility] Address [address] [facility] [address] [place] [address] Phone [phone] Social History Type Date Description Comments Sex Unknown Medical Devices Description No Information Available Encounters Description No Information Available Assessments Description No Information Available Plan of Treatment No Information Available Functional Status Description No Information Available Mental Status Description No Information Available Referrals Description No Information Available
--- OUTSIDE RECORDS SUMMARY | 2024-07-31 13:23 | XMS_ITS | Data Portability ---
Author Organization [facility] Home Service Address [address] [place] [address] Assessment Encounter Date Assessment Date Assessment LastModified by Organization Details LastModified Time 03/04/2024 03/04/2024 Patient agreed and verbally consents to this audio and video Telehealth appt via a secure platform [email or web address] Not available 03/04/2024 14:50:55 07/22/2024 07/22/2024 Patient presente d to office today for their Medicare Annual Wellness Visit. Education was provided on healthy nutrition, including a diet rich in fruits and vegetables, minimizing simple carbohydrates, salt, and saturated fats. Encouraged regular cardiovascular exercise such as walking at least 30 minutes daily, 5 times per week. Emphasized preventive health measures and educated pt on fall prevention and community-based lifestyle interventions to help reduce health risks and promote healthy living. [email or web address] Not available 07/16/2024 07:21:26 Plan of Treatment Reminders Order Date Submit Date Provider Last Modified By Organization Details Last Modified Time Details Appointments MEDICARE ANNUAL WELLNESS 2025 01:30P M DR NAGEL Not available Not available Not available Lab lipid panel, blood 2024 025 [facility], [address] [place] [address], [place], [address], 07/22/2024 15:06:10 CMP, serum or plasma 2023 024 [facility], [address] [facility], [place], [address], 05/26/2023 11:09:25 CBC w/ auto diff 2023 024 [facility], [address] [place] [address], [address], 05/26/2023 11:09:26 lipid panel, blood 2023 024 [facility], [address] [place] [address], [address], 05/26/2023 11:09:25 vitamin D, 25-hydrox y, total, serum 2023 024 [facility], [address] [place] [address], [address], 05/19/2023 15:10:22 iron + TIBC + ferritin, serum 2023 024 [facility], [address] [place] [address], [address], 05/19/2023 15:10:22 iron + TIBC + ferritin, serum 2022 023 [facility], [address] [place] [address], [address], 09/26/2022 10:30:29 CBC w/ auto diff 2022 023 [facility], [address] [place] [address], [address], 09/26/2022 10:30:29 Referral None recorded. Procedures None recorded. Surgeries None recorded. Imaging event monitor 2024 025 [email or web address] [facility], [address] [place] [address], [address], 07/22/2024 15:22:54 XR, chest, 2 view 2023 024 [facility], [address] [place] [address], [address], 03/18/2024 08:32:28 XR, chest, 2 view 2023 024 [facility] (Imaging), [address] [place], [address], 03/18/2024 08:32:21 bone density 2023 024 [facility], [address] [place], [address], 06/07/2023 17:22:58 Medication Orders doxycycli ne hyclate 100 mg capsule 2024 025 [facility] [address] [place], [address], 07/22/2024 15:02:26 prednison e 10 mg tablet 2023 024 [address] [address] [place], [address], 07/22/2024 14:22:15 albuterol sulfate HFA 90 mcg/actua tion aerosol inhaler 2023 024 [facility] [address] [place], [address], 04/01/2024 11:14:17 Zithromax Z-Cj 250 mg tablet 2023 024 [facility] [address] [place], [address], 04/01/2024 11:11:26 Medrol (Cj) 4 mg tablets in a dose pack 2023 024 [facility] [address] [place], [address], 04/01/2024 11:11:15 omeprazol e 20 mg capsule,d elayed release 2023 024 [address] [place], [address], 07/22/2024 14:22:10 celecoxib 200 mg capsule 2023 024 [facility] #2071, [address] [place], [address], 05/19/2023 15:11:53 dextroamp hetamine- amphetami ne 20 mg tablet 2023 024 [facility] #2071, [address] [place], [address], 05/19/2023 15:17:01 Medrol (Cj) 4 mg tablets in a dose pack 2023 024 [email or web address] [facility]acy #2071, [address] [place], [address], 04/01/2024 11:11:11 amoxicill in 875 mg-potass ium clavulana te 125 mg tablet 2022 023 [email or web address] [facility]/Pharmacy #2071, [address] [place], [address], 10/18/2022 09:50:26 prednison e 10 mg tablet 2022 023 [facility] #2071, [address] [place], [address], 07/22/2024 14:22:15 Patient TargetsNo targets recorded. Patient Instructions Encounter Date Encounter Id Patient Instructions Last Modified By Organization Details Last Modified Time 05/19/2023 [id number] gastroesophageal reflux disease (GERD): care instructions Not available 05/19/2023 15:11:50 iron deficiency anemia: care instructions Not available 05/19/2023 15:09:00 07/22/2024 [id number] gastroesophageal reflux disease (GERD): care instructions Not available 07/22/2024 15:00:02 advance care planning: care instructions Not available 07/22/2024 15:00:02 iron deficiency anemia: care instructions Not available 07/22/2024 15:00:02 attention defici t hyperactivity disorder (ADHD) in adults: care instructions Not available 07/22/2024 15:00:02 Discussed and explained advance directives such as standard forms to the {{patient* caregiver patient and caregiver}}. Face to face discussion lasted for a duration of _45__ minutes. Not available 07/22/2024 15:00:13 Reason for Referral None Reported. Results Created Date Observation Date Name Description Value Unit Range Abnormal Flag Note LastModifiedBy Organization Detail LastModifiedTime 06/07/19 24 06/07/2023 bone densi ty No observ ation record ed. [address] [place], [address], 03/04/2024 14:53:55 07/31/19 24 07/05/2023 MAMMO , scree svetlana, digit al, bilat eral No observ ation record ed. [address] [place], [address], 03/04/2024 14:53:55 03/05/20 24 03/04/2024 XR, chest , 2 view No observ ation record ed. [email or web address] [facility] (Medical Records) [address] [facility], [place], [address], 03/05/2024 11:22:43 Result Notes None recorded. Problems Name Problem SNOMED Code Status Onset Date Resolution Date Notes Provider Name and Address Organization Details Recorded Time Allergic rhinitis 64496947 Active 2017 Not Available [facility] 3 09:40:27 Attentio n deficit hyperact ivity disorder 792494342 Active 2017 Not Available [facility] 3 09:40:27 Viral pericard itis 41419570 Active 2017 Not Available [facility] 3 09:40:27 Rectal pain 62786730 Active 2017 proctalg ia fugax Not Available [facility] 3 09:40:27 Exercise -induced asthma 81681982 Active 2019 Not Available [facility] 3 09:40:27 Unintent ional weight loss 756669991 Active 2021 Not Available [facility] 3 09:40:27 Anemia 539928909 Completed 202107/22/2024 Toi Nagel DO [address] [place] [address], [address], [facility] 5 14:57:25 Gastroes ophageal reflux disease 707522200 Active 2021 Not Available [facility] 3 09:40:27 Iron deficien cy anemia 96263541 Active 2021 Not Available [facility] 3 09:40:27 Acute bronchit is 55851361 Completed 202107/22/2024 Toi Nagel, [address] [place] [address], [address], [facility] 5 14:57:11 Costal chondrit is 00696921 Active 2021 Not Available [facility] 3 09:40:27 Rib pain 248651314 Active 2021 Not Available [facility] 3 09:40:27 Atypical chest pain 674892805 Active 2021 Not Available [facility] 3 09:40:26 Dysuria 54216687 Active 2021 Not Available [facility] 3 09:40:27 Gout 21491393 Active 2021 Not Available [facility] 3 09:40:27 Dyspnea 137401346 Active 2021 Not Available [facility] 3 09:40:27 Chronic duodenit is 731726444 Active 2022 Not Available [facility] 3 09:40:27 Chronic esophagi tis 859030401 Active 2022 Not Available [facility] 3 09:40:27 Eczema 73589072 Active 2022 Not Available [facility] 3 09:40:27 Eczema of external auditory canal 66863607 Active 2022 Not Available [facility] 3 09:40:27 Pain of right knee joint 8515766609 13840 Active 2022 Not Available [facility] 3 09:40:27 Bacteria l conjunct ivitis 552455041 Active 2022 Not Available [facility] 3 09:40:27 Acute bacteria l sinusiti s 74379017 Completed 202207/22/2024 Removal Reason: resolv Toi Nagel, DO [address] [place] [address], [address], [facility] 5 14:57:03 Impetigo 56771614 Active 2022 Not Available [facility] 3 09:40:27 Expirato ry wheezing 9733377 Completed 202207/22/2024 Toi Nagel, DO [address] [place] [address], [address], [facility] 5 14:57:56 COVID-19 022359327 Active 2023 Toi Nagel DO [address] [place] [address], [address], [facility] 4 13:30:26 Trochant darleen bursitis of right hip 3231163548 60387 Active 2023 Toi Nagel DO [address] [place] [address], [address], [facility] 4 15:09:54 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 3238015684 Active 2023 Toi Nagel DO [address] [place] [address], [address], [facility] 4 15:10:46 Postmeno pausal osteopor osis 347102603 Active 2023 Toi Nagel, DO [address] [place], [address], [facility] 4 09:33:20 Intermit tent palpitat ions 235285068 Active 2023 Toi Nagel, DO [address] [place], [address], [facility] 4 16:21:00 Wheezing 87607555 Active 2023 MALLY CONNORS [address] [place], [address], [facility] 4 11:10:48 Cough 84213607 Active 2023 MALLY CONNORS [address] [place], [address], [facility] 4 11:19:30 Vulval cellulit is 537090940 Active 2024 Toi Nagel, DO [address] [place], [address], [facility] 5 15:01:30 Problem Notes None recorded. Procedures Surgical History Date Name Laterality Status Provider Name and Address Organization Details Recorded Time 09/12/19 21 Suture/Staple removal completed MALLY CONNORS [address] [place], [address], [facility] 09/11/2020 11:05:02 06/01/19 18 Colonoscopy completed Ashlee Gates [facility] 04/23/2019 08:41:21 Imaging Results Imaging Date Name Status LastModified by Organiz ation Details LastModified Time 06/07/2023 bone density completed [address] [place], [address], 03/04/2024 14:53:55 07/05/2023 MAMMO, screening, digital, bilateral completed [address] [place], [address], 03/04/2024 14:53:55 03/04/2024 XR, chest, 2 view completed [email or web address] [facility] (Medical Records) [address] [place], [address], 03/05/2024 11:22:43 Procedure Notes None recorded. Medical Equipment None Reported. Allergies Allergen ID Allergen Name Allergen Category Reaction Reaction Severity Criticality Documentation Date Start Date Code Code System Note Provider Name and Address Organization Details Recorded Time 2373 Substance with sulfonami de structure and antibacte rial mechanism of action (substanc e) medicatio n Not available Not available Not available 01/10/2018 97907 8003 SNOMED Therese felix [facility] 8 15:34:34 2375 azithromy ze medicatio n Not available Not available Not available 01/10/2018 68621 RxNorm Toi Nagel, DO [address] [place], [address], [facility] 1 11:51:13 7789 amoxicill in medicatio n Not available Not available Not available 05/19/2023 723 RxNorm Marilyn felix [facility] 4 14:36:38 Medications Name Sig Start Date Stop Date Status Note LastModified by Organization Details LastModified Time Prescriptio n - Renewal 04/23 completed Not Available Not Available Not Available celecoxib 200 mg capsule Take 1 capsule every day by oral route for 30 days. active Not Available Not Available No t Available amoxicillin 500 mg capsule 04/23 completed Not Available Not Available Not Available prednisone 10 mg tablet 50 mg x 2 days40 mg x 2 days30 mg x 2 days 20 mg x 2 days 10 mg x 2 days 07/22 completed Not Available Not Available Not Available doxycycline hyclate 100 mg capsule Take 1 capsule twice a day by oral route after meal(s) for 10 days. 2024 active Not Available Not Available Not Avai lable triamcinolo ne acetonide 0.5 % topical cream APPLY TO AFFECTED AREA 3 TIMES A DAY 07/22 completed Not Available Not Available Not Available azithromyci n 250 mg tablet TAKE 2 TABLETS (500 MG) BY ORAL ROUTE ONCE DAILY FOR 1 DAY THEN 1 TABLET (250 MG) BY ORAL ROUTE ONCE DAILY FOR 4 DAYS 04/01 completed Not Available Not Available Not Available fluconazole 150 mg tablet TAKE 1 TABLET ORALLY TODAY, 1 TABLET 3 DAYS LATER 10/18 completed Not Available Not Available Not Available prednisone 20 mg tablet TAKE 2 TABLETS BY MOUTH DAILY TAKE 2 TABLETS AROUND NOONTIME ONCE A DAY. 04/12 completed Not Available Not Available Not Available dextroamphe tamine-amph etamine 10 mg tablet 06/12 completed Not Available Not Available Not Available metronidazo le 500 mg tablet 04/23 completed Not Available Not Available Not Available [facility] Vitamin E 1000 unit capsule Take by oral route. active Not Available Not Available No t Available acyclovir 400 mg tablet TAKE 2 TABLETS (800 MG TOTAL) BY MOUTH 2 (TWO) TIMES A DAY FOR 15 DAYS. 10/18 completed Not Available Not Available Not Available doxycycline monohydrate 100 mg capsule TAKE 1 CAPSULE BY MOUTH TWICE A DAY FOR 7 DAYS 10/18 completed Not Available Not Available Not Available dextroamphe tamine-amph etamine 20 mg tablet TAKE 1 TABLET BY MOUTH EVERY DAY 2024 active PRN Not Available Not Available Not Avai lable omeprazole 20 mg capsule,del ayed release TAKE 1 CAPSULE BY MOUTH EVERY DAY 07/22 completed Not Available Not Available Not Available zinc 50 mg tablet Take 1 tablet every day by oral route. active Not Available Not Available No t Available mupirocin 2 % topical ointment APPLY EXTERNALL Y TO AFFECTED AREA TWICE A DAY FOR 7 DAYS 10/18 completed Not Available Not Available Not Available diclofenac sodium 50 mg tablet,richard yed release TAKE 1 TABLET BY MOUTH TWICE A DAY WITH MEALS 07/22 completed Not Available Not Available Not Available nystatin 100,000 unit/gram topical powder APPLY TOPICALLY 4 TIMES A DAY. 07/22 completed Not Available Not Available Not Available ibuprofen 600 mg tablet 06/12 completed Not Available Not Available Not Available methylpredn isolone 4 mg tablets in a dose pack Take 1 dose pk by oral route as directed for 6 days. 04/01 completed Not Available Not Available Not Available albuterol sulfate HFA 90 mcg/actuati on aerosol inhaler inhale 1-2 puffs every 4-6 hours prn active Not Available Not Available No t Available colchicine 0.6 mg tablet TAKE 1 TABLET BY MOUTH EVERY DAY FOR 10 DAYS 04/12 completed Not Available Not Available Not Available doxycycline hyclate 100 mg tablet Take 1 tablet twice a day by oral route for 7 days. 04/23 completed Not Available Not Available Not Available amoxicillin 875 mg-potassiu m clavulanate 125 mg tablet TAKE 1 TABLET BY MOUTH EVERY 12 HOURS FOR 7 DAYS 10/18 completed Not Available Not Available Not Available Laxative (bisacodyl) 5 mg tablet,richard yed release 4 TABS WITH 8OZ OF CLEAR LIQUIDS ORALLY ONCE A DAY 1 DAYS 04/12 completed Not Available Not Available Not Available Pneumovax-2 3 25 mcg/0.5 mL injection syringe 12/24 completed Not Available Not Available Not Available Multivitami n 50 Plus tablet Take 1 tablet every day by oral route. active Not Available Not Available No t Available Calcium-500 500 mg (as calcium carbonate 1,250 mg) chewable tablet Take 1 tablet every day by oral route. active Not Available Not Available No t Available Vitamin D3 8000 IU daily active Not Available Not Available No t Available Vitamin B12 daily active Not Available Not A vailable Not Available fluocinolon e acetonide oil 0.01 % ear drops INSTILL 5 DROPS INTO AFFECTED EAR TWICE A DAY 07/22 completed Not Available Not Available Not Available CoQ10 SG 100 once per day active Not Available Not Available No t Available calcium 500 mg (as carbonate)- vitamin D3 3.125 mcg (125 unit) tablet Take by oral route. 01/14 completed Not Available Not Available Not Available biotin 2,500 mcg capsule Take 2 capsules every day by oral route. 01/14 completed Not Available Not Available Not Available diclofenac 1 % topical gel Apply 1 g 4 times a day by topical route for 12 days. 06/12 completed Not Available Not Available Not Available magnesium glycinate active Not Available Not Available No t Available GaviLyte-G 236 gram-22.74 gram-6.74 gram-5.86 gram oral solution 04/12 completed Not Available Not Available Not Available Mitigare 0.6 mg capsule TAKE ONE TABL active Not Available Not Available No t Available Shingrix (PF) 50 mcg/0.5 mL intramuscul ar suspension, kit 06/12 completed Not Available Not Available Not Available Afluria Qd 2019- (36 mos up)(PF)60 mcg (15 mcg x4)/0.5 mL IM syringe 12/24 completed Not Available Not Available Not Available Paxlovid 300 mg (150 mg x 2)-100 mg tablets in a dose pack TAKE 1 DOSE PK BY ORAL ROUTE FOR 5 DAYS. 06/08 completed Not Available Not Available Not Available Vitals Date Recorded Body height Body mass index (BMI) Body weight Heart rate Oxygen saturation Oxygen saturation in Arterial blood by Pulse oximetry Systolic blood pressure Diastolic blood pressure Provider Name and Address Organization Details Last Updated DateTime 3 158.75 cm 21.1 kg/m2 88829.3 1 g 71 /min 99 % 99 % 120 mm[Hg] 70 mm[Hg] Marilyn Mclaughlin [facility] 3 10:01:21 Date Recorded Body height Body mass index (BMI) Body weight Heart rate Oxygen saturation Oxygen saturation in Arterial blood by Pulse oximetry Systolic blood pressure Diastolic blood pressure Provider Name and Address Organization Details Last Updated DateTime 4 158.75 cm 21.2 kg/m2 09821.9 g 60 /min 98 % 98 % 118 mm[Hg] 68 mm[Hg] Marilyn Mclaughlin [facility] 4 14:38:09 Date Recorded Body height Body mass index (BMI) Body weight Heart rate Oxygen saturation Oxygen saturation in Arterial blood by Pulse oximetry Systolic blood pressure Diastolic blood pressure Provider Name and Address Organization Details Last Updated DateTime 5 157.48 cm 22.1 kg/m2 02754.6 8 g 78 /min 98 % 98 % 132 mm[Hg] 78 mm[Hg] Toi Nagel, DO [address] [place], [address] [place] [address] Internal Medicine 5 14:20:34 Social History Question Answer Notes LastModified by Organizat ion Details LastModified Time Tobacco Smoking Status Never Smoker Not Available [facility] 02/11/2020 03:36:24 What Is Your Level Of Alcohol Consumption? Occasional [id number] Information not available 02/11/2020 What Is Your Level Of Caffeine Consumption? Occasional TEA/COFFEE [id number] Information not available 02/11/2020 What Was The Date Of Your Most Recent Tobacco Screening? 07/22/2024 Information not available 07/22/2024 Do You Or Have You Ever Used Any Other Forms Of Tobacco Or Nicotine? No [email or web address] Information not available 05/19/2023 Sex: Unknown Functional Status Question Answer Note LastModified by Organization D etails LastModified Time What is your exercise level? None [id number] Information not available 02/11/2020 Mental Status None recorded. Family History Nothing Reported. Medical History Condition Response Coronary Artery Disease N Other N Gout N Blood Diseases N Kidney Stones N Breast Cancer N Blood Transfusion N Lung Disease N Depression N COPD N Defects or Inherited Disease N Anxiety Disorder N Muscle, Joint, or Bone Problems N Obesity N Vision or Eye Problems N Arthritis N Infertility N Polyps N Mental Disorder N Cancer N Stroke N Varicosities N Endometriosis N Bladder or Kidney Problems N High Cholesterol N Liver Disease N Fibromyalgia N Headaches N Kidney Disease N Allergies/Hayfever N Heart Problems N Hospitalizations N Thyroid Problems N GI Problems N Eating Disorder N Skin Problems N Anemia N MRSA exposure N Constipation N Mental Illness N Diabetes N Ovarian Cancer N Seizures/Epilepsy N Tuberculosis N Congestive Heart Failure (CHF) N Eczema N Abuse/Domestic Violence N Diverticulitis N Asthma N Reflux/GERD N Hepatitis N Heart Disease N Pulmonary Embolism N Hypertension N Chicken Pox N Autism Spectrum Disorder (ASD) N Osteoporosis N Gynecological HistoryNo gynecological history recorded. Obstetrics History GPAL:G 0 P 0 0 0 0 Immunizations Vaccine Type Date Status Note Provider Nam e and Address Organization Details Recorded Time influenza, unspecified formulation 2 completed Tori felix [facility] 05/19/2023 14:31:06 Tdap 3 completed Ashlee felix [facility] 08/12/2022 10:18:56 COVID-19 mRNA, bivalent, original/Omicron BA.1, Non-US Vaccine (Spikevax Bivalent), Moderna 3 completed Tori felix [facility] 05/19/2023 14:31:06 pneumococcal polysaccharide PPV23 01/15/202 0 completed Tori felix, [facility] Internal [facility] 05/19/2023 14:31:06 Influenza, split virus, quadrivalent, preservative 1 completed Tori felix, [facility] 05/19/2023 14:31:06 zoster recombinant 0 completed Tori felix, [facility] 05/19/2023 14:31:06 zoster recombinant 0 completed Tori felix, [facility] 05/19/2023 14:31:06 Influenza, split virus, quadrivalent, preservative 0 completed Tori felix, [facility] 05/19/2023 14:31:06 COVID-19 vaccine, vector-nr, rS-ChAdOx1, PF, 0.5 mL 1 completed Tori felix [facility] 05/19/2023 14:31:06 COVID-19 vaccine, vector-nr, rS-ChAdOx1, PF, 0.5 mL [facility]:31[facility] Past Encounters Encounter ID Performer Location Encounter Start Date Encounter Closed Date Diagnosis/Indication Diagnosis SNOMED-CT Code Diagnosis ICD10 Code Diagnosis Note [id number] July REJI Peralta [facility] Internal [facility] [address] [facility],[place] [address] 01/12/2018 14:15:55 01/12/2018 15:11:03 Asthma 314942578 J45.909 Acute bronchitis 5887029 2 J20.9 Pneumonia 968760902 J18. 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 Attention deficit hyperactivity disorder 175416500 F90.9 [id number] Toi Nagel DO [facility] Internal Medicine [address] [facility], [place] [address] 04/23/2019 11:18:41 04/23/2019 12:05:42 Adult health examination 027688686 Z00.00 Hepatitis C screening 41 8715682 Z11.59 Screening mammography 24 936300 Z12.31 Osteoporosis 98945927 M8 1.0 would like to set her up Attention deficit hyperactivity disorder 189603358 F90.9 [id number] MALLY CONNORS [facility] Internal [facility] [address] [facility], [place] [address] 06/26/2019 11:10:13 06/26/2019 11:58:27 Dyspnea 356350537 R06.00 pt was moving pallets this morning, has been having seasonal allergies and has a hx of exercise-i nduced asthma noticed she started having difficulty breathing and her inhaler was deep breathing caused her to have a dry cough in office she was treated with a nebulizer and is improved with treatment will prescribe inhaler for patient to use at home Exercise-i nduced asthma 63429410 J45.990 pt has exercise -induced asthma this episode was most likely induced by combinatio n of seasonal allergies and heavy lifting/ex ertion will give an inhaler to use at home instructed pt to call us if symptoms persist even with inhaler instructed pt to go to ER if she is worsening and struggling to breathe pt understand s this [id number] Toi Naegl DO [facility] Internal Medicine [address] [facility],[place] [address] 12/25/2019 16:00:01 12/25/2019 16:36:39 Costal chondritis 69029632 M94.0 will tx with diclofenac 50 and will have her try this for 10-14 days [id number] Toi Nagel DO [facility] Internal Medicine [address],[place] [address] 06/12/2020 11:44:35 06/12/2020 12:26:53 Adult health examination 524887546 Z00.00 doing well with everything except has some early changes of venous stasis Screening for cardiovascular system disease 750738876 Z13.6 will need lab Screening for malignant neoplasm of colon 260489068 Z12.11 will refer for eval Screening for osteoporosis 723334944 Z13.820 will need follow up Screening mammography 24 943294 Z12.31 will nee\d this ordered Asthma 693892312 J45.90 9 seems to be doing ok pFT is good [id number] MALLY CONNORS [facility] Internal Medicine [address],[place] [address] 09/11/2020 10:34:40 09/11/2020 13:40:13 Removal of chase 93228719 Z48.02 stable Fracture o f scaphoid bone of wrist 22847939 S62.001D stable [id number] Toi Nagel [facility] Internal Medicine [address],[place] [address] 09/15/2020 14:06:31 09/15/2020 15:15:09 Ataxia R27.0 has been falling so we will need to have her get eval had injured head last week Recurrent falls 07951131 2 R29.6 as noted needs eval of her gait and stability propricept ion etc consider MRI if above unhelpful Injury of head 96917874 S09.90XA [id number] Toi Nagel DO [facility] Internal Medicine [address],[place] [address] 10/16/2020 14:01:41 10/16/2020 14:44:23 Bilateral vestibular neuronitis of inner ears 1206810817 767121 H81.23 will need to have pt sent to a subspecial ty DR as local med care have not been successful \we will have her to [facility] or etc we will look for an appropriat e specialist as her quality of life is now severely affected and she has begun falling with resultant injury including scalp laceration and broken arm . . 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 04 M94.0 will refill on diclofenac [id number] MALLY CONNORS [facility] Internal Medicine [address],[place] [address] 01/18/2022 14:54:39 01/18/2022 16:32:56 Rib pain 921158715 R07.81 will fu with XR ribs, bilateral Atypical chest pain 1025 20272 R07.89 will fu with echo, fu with XR bilateralw ill fu with EKG Dysuria 17460127 R30.0 will fu with urine sample [id number] Toi Nagel DO [facility] Internal Medicine [address],[place] [address] 04/12/2022 09:59:17 04/12/2022 13:35:46 Active or passive immunization 137885703 Z23 utd Adult heal th examination 744503983 Z00.00 doing well with everything except has some early changes of venous stasis Exercise-i nduced asthma 31469385 J45.990 will look into med other than inhaler with albuterol Chronic duodenitis 52903 3007 K29.80 will stay on the omeprazole for now bu t we need to know the results of gastric bx did they bx for h pylori??? Eczema of external auditory canal 72620858 H60.549 [id number] Toi Nagel DO [facility] Internal Medicine [address],[place] [address] 05/31/2022 14:41:18 05/31/2022 16:14:19 Attention deficit hyperactivity disorder 974594850 F90.9 stable on current meds no major prob Gastroesop hageal reflux disease 861476971 K21.01 seems more stable with omeprazole will cont for 2 months then go to 3x/week Pain of ri ght knee joint 9862014796 97931 M25.561 [id number] MALLY CONNORS [facility] Internal Medicine [address] [facility] [address],[place] [address] 09/26/2022 09:52:01 09/26/2022 11:00:21 Bacterial conjunctivitis 227048748 H10.012 start on regimine below Acute bact erial sinusitis 26903884 J01.11 start on amox-clav for the next seven days Impetigo 15475094 L01.09 has neosporin/ bacitracin at home she is going to use Expiratory wheezing 9763 007 R06.2 start prednisone Acute bronchitis 2161996 2 J20.8 short taper of pred and amox/clav Anemia 541361478 D50.0 will retest levels from when she returns from her trip [id number] Toi Nagel, [facility] Internal Medicine [address] [facility] [address],[place] [facility] [place] [address] 05/19/2023 14:30:58 05/19/2023 15:19:29 Active or passive immunization 176723627 Z23 utd Adult heal th examination 215434458 Z00.00 doing well with everything except has some early changes of venous stasis Exercise-i nduced asthma 20806867 J45.990 will look into med other than inhaler with albuterol Iron defic iency anemia 73454745 D50.9 neesd Trochanter ic bursitis of right hip 9575760014 02802 M70.61 will try celebrex Post-acute COVID-19 1119 406308 U09.9 Gastroesop hageal reflux disease 172335097 K21.01 seems more stable with omeprazole will cont for 2 months then go to 3x/week Attention deficit hyperactivity disorder 651227811 F90.9 stable on current meds no major prob Screening for osteoporosis 929548950 Z13.820 will need follow up Osteoporosis 80034479 M8 1.0 [id number] MALLY CONNORS [facility] Internal Medicine [address] [facility] [address],[place] [address] 03/04/2024 14:20:21 03/04/2024 15:04:51 Acute bronchitis 43672961 J20.8 start medrol and z pakCXR ordered for evaluation of her lungs given exam from endo [id number] MALLY CONNORS [facility] Internal Medicine [address] [facility] [address],[place] [address] 04/01/2024 10:58:11 04/01/2024 11:26:17 Wheezing 59498582 R06.2 will restart a longer prednisone taper and have her start using the albuterol inhaler Cough 49299758 R05.2 start medication s [id number] DO [facility] [address] [facility] [address],[place] [address] 07/22/2024 14:11:33 07/22/2024 15:22:54 Adult health examination 049986375 Z00.00 doing well with everything except has some early changes of venous stasis already had extensive lab from the endocrinol [facility] Screening for cardiovascular system disease 085596001 Z13.6 will need lab Screening for malignant neoplasm of colon 417499554 Z12.11 she is up to date Screening for osteoporosis 847859796 Z13.820 will need follow up Screening mammography 24 481280 Z12.31 she is utd Attention deficit hyperactivity disorder 474845648 F90.9 stable on current meds no major prob Gastroesop hageal reflux disease 194022485 K21.01 off the omeprzole willuse the famotidine Iron defic iency anemia 61765487 D50.9 no longer an issue Intermitte nt palpitations 508733388 R00.2 Vulval cellulitis 594948 007 N76.2 Health Concerns Section Related Observation LastModified by Organization Detai ls LastModified Time None Recorded Concern Status LastModified by Organization Details LastModified Time None Recorded Advance Directives Directive None Recorded Payers Encounter Date Sequence Insurance Name Policy Number Policy Vick Covered Member ID Vick Member ID Guarantor Name 09/26/2022 2 [place] [id number] Jyoti Wells [id number] Jyoti Longoria 09/26/2022 1 [place] [employer] Jyoti Longoria [id number] Jyoti Longoria 05/19/2023 2 [place] [id number] Jyoti Wells [id number] Jyoti Longoria 05/19/2023 1 [place] [employer] Jyoti Longoria [id number] Jyoit Vidal Swati 03/04/2024 2 [place] [id number] Jyoti Rayo Wells [id number] Jyoti Vidal Longoria 03/04/2024 1 [place] [employer] [employer] [place] Jyoti Longoria [id number] Jyoti Vidal Swati 04/01/2024 2 [place] [id number] Jyoti Rayo Russell [id number] Jyoti Vidal Swati 04/01/2024 1 [place] Jyoti Longoria [id number] 1 [id number] Jyoti Vidal Swati 07/22/2024 2 [place] [id number] Jyoti F Russell [id number] Jyoti Vidal Swati 07/22/2024 1 [place] [employer] Jyoti Longoria [id number] 1 [id number] Jyoti J Swati Notes Date Note Type Note Provider Name and Address Organization Details Recorded Time 3 text/html c/o sinus symptoms h/x of acute bronchitis > started with sinus symptoms and pressure, hearing changes and pink eye left eye start on amox-clav and pred taper for wheezing will need repeat bw for low hemoglobin levels per blood donation centerwill do so when she returns from her tripleft in the lab did have some sort of rash from her new partner? who has hx of herpesthey did a better of pills for infection, fungus and herpesnot sure which one worked but the rash cleared up will try to retrieve the note from tapestry MALLY CONNORS [address] [place] [address], [place], [address], [facility] 09/26/2022 10:32:32 4 text/html Annual WellnessReported bypatient.Diet and Nutrition:healthy diet Fracture Risk:no history of fractures; no recent explained fracture; no sudden unexplained fractures; no previous musculoskeletal injuries Physical Activity:exercises on a regular basis; recent increase in physical activity; good physical condition Additional Lifestyle Factors:no tobacco use; no alcohol intake; stopped drinking alcohol Depression Risk:never feels sad, empty, or tearful; no loss of interest in activities; no significant changes in weight; no sleep disturbances or insomnia; no agitation; no loss of energy; no feelings of worthlessness or guilt; no thoughts of suicide; no history of depression; no history of mood disorders Hearing:no loss of hearing Vision:no vision problemsNotes:just getting over covid Toi Nagel DO [address] [place], [address], [facility] Internal Medicine 05/19/2023 15:17:06 4 text/html c/o URI symptoms The patient is participating in this appointment via telemedicine communication with a phone call/video calling service ([employer]View)The patient consents to use of these platforms in place of an in-person appointment due to either sick symptoms the patient is presenting with or current office closure due to COVID exposure in order to keep our office staff and patients safe the patient saw her fly worker today, noted wheezing throughout the lungsthe patient reports she has been traveling frequently this past few weeksthe patient reports that she notes that she got sick after her most recent trip the patient is wheezing, coughing (productive, yellow and white mucus), trouble sleeping, fatigue, body acheshas to fu with blood work for endocrine start on z cj and medrol MALLY CONNORS [address] [place], [address], [facility] 03/04/2024 14:54:43 4 text/html c/o continued symptoms the patient reports that she is still having some issues with the coughing, wheezing, clearing the throat a lot the patient reports the wheezing has improved from the prednisonecan breath through her nosesome drainage in the morning from her eyesno sore throat, no ear pain recommended restarting the pred taper for longer and having her albuterol inhaler most likely residual inflammation causing some the chest congestion and lingering cough no fever, no chills, no sob MALLY CONNORS [address] [place], [address], [facility] 04/01/2024 11:25:33 5 text/html ADHDReported bypatient.School Performance:no issue; child is learning School Support:well supported; teachers are very involved Organization:good organization Appetite:normal appetite; no binge eating Mood:stable Sleep:good; adequate sleep, not tired at school Friends:well connected with peers Family:no new stressors Attention:able to focus Hyperactivity:is not hyperactive; does not fidget/squirm Impulsivity:is not impulsive Tasking:able to initiate tasks; able to complete tasks; able to move on to the next task; multi-tasking Medication Side Effects:no fainting; no dizziness; no chest pain; no shortness of breath; no seizures; no change in exercise tolerance; no headaches; no ticsAnemiaReported bypatient.Timing:better Associated Symptoms:no shortness of breath; no chest pain; no abdominal pain; no nausea; no vomiting; no melena; no blood in stool; no weakness; no fatigue; no palpitations; no excessive sweating; normal nails; tolerant of cold; no nonfood cravings; no behavior problems; no symptoms of peripheral neuropathy; normal balance; no jaundice; no pallor; no weight lossMedicare Annual Wellness VisitReported bypatient.Diet and Nutrition:healthy diet Fracture Risk:no history of fractures; no recent explained fracture; no sudden unexplained fractures; no previous musculoskeletal injuries Physical Activity:exercises on a regular basis; recent increase in physical activity; good physical condition Depression Risk:never feels sad, empty, or tearful; no loss of interest in activities; no significant changes in weight; no sleep disturbances or insomnia; no agitation; no loss of energy; no feelings of worthlessness or guilt; no thoughts of suicide; no history of depression; no history of mood disorders Orientation:no disorientation to time; no disorientation to date; no disorientation to place Concentration and Memory:no decreased concentrating ability; no memory lapses or loss; does not forget words Speech/Motor difficulties:no speech difficulties; no difficulty expressing formulated concepts; no difficulty with fine manipulative tasks; no difficulty writing/copying; no slowed reaction time; does not knock things over when trying to pick them up Hearing:no loss of hearing Vision:no vision problems Activities of Daily Living:able to bathe with limited or no assistance; able to contol urination and bowels; able to dress with limited or no assistance; able to feed self with limited or no assistance; able to get out of chair or bed with limited or no assistance; able to groom with limited or no assistance; able to toilet with limited or no assistance Instrumental Activities of Daily Living:able to do house work with limited or no assistance; able to grocery shop with limited or no assistance; able to manage medications with limited or no assistance; able to manage money with limited or no assistance; able to prepare meals with limited or no assistance; able to use the phone with limited or no assistance Falls Risk Assessment:no frequent falls while walking; no fall in the past year; no fall since last visit; no dizziness/vertigo Home Safety:no unsafe perico hazzards; no unsafe stairs; no unsafe gas appliances; working smoke/CO detectors; wears protective head gear for biking/high velocity; use of seatbelts; practicing 'safer sex'; no vision or hearing loss while driving; no fire arms; has hand bars in the bathroom/shower; good lighting in the home here for rechk and is doing ok no major issuesexcept for a recent irritation in the groinotherwise is having an occ episode of a heavy beating sensation in her heart Toi Nagel, DO [address] [facility], [place], [address], [facility] 07/22/2024 15:03:16 OBGyn Episode No OBEpisode recorded.
--- OUTSIDE RECORDS SUMMARY | 2024-07-31 13:23 | XMS_ITS | Patient Health Record ---
Author Organization [facility] Address [address] [place] [address] Support Name Relationship Address Phone Jyoti Longoria Guarantor Unknown [phone] Reason For Referral No Information Medications Medication SIG (Take, Route, Frequency, Duration) Notes Start Date End Date Status MUPIROCIN 2% OINTMENT 1 APPLICATION TOP as directed Chris02/27/2010 Entered by OLIVERIO OLIVERA 02/27/2010 Active Problems Problem Type SNOMED Code ICD Code Onset Dates Problem Status W/U Status Risk Notes Problem Bronchitis (54519515) Bronchitis, not specified as acute or chronic (490) 02/28/20 10 Active confirmed Chris: Bronchit is; Problem Cellulitis (871560694) Cellulitis and abscess of unspecified site (682.9) 02/28/20 10 Active confirmed Chris: ear; Cellulit is; Problem Osteoarthritis (880199468) Osteoarthrosis , unspecified whether generalized or localized, unspecified site (715.90) 02/28/20 10 Active confirmed Chris: back and neck; Osteoart hritis; Problem Acute sinusitis (02775155) Acute sinusitis with symptoms > 10 days (461.9) 02/28/20 10 Active confirmed Chris: Sinusiti s; Plan Of Treatment No Information Insurance Providers Payer Name Payer Address Payer Phone Subscriber Number Group Number Insured Name Patient Relationship to Insured Coverage Start Date Coverage End Date [facility] [address] [place] [address] [id number] [facility] Jyoti Longoria Self - patient is the insured
== END ==
LOC: HO.CARD 11:05
PROVIDERS: PCP Internal Medicine; Visit Provider Internal Medicine
DX: R00.2 Palpitations (principal)
CPT/HCPCS: 93270

== ENCOUNTER → 2024-07-31 11:10 | Outpatient (BNV) | payer MEDICARE, SELFPAY | PROVIDERS: PCP Internal Medicine; Visit Provider Internal Medicine Cardiovascular Disease | DX: I49.3 Ventricular premature depolarization (principal); I49.1 Atrial premature depolarization | CPT/HCPCS: 93272 ==

== ENCOUNTER 2024-12-25 15:08 | Outpatient (REF) | payer MEDICARE, SELFPAY ==
--- OUTSIDE RECORDS SUMMARY | 2016-05-17 01:00 | XMS_ITS | Encounter Summary ---
Author Organization [facility] Address [address] [facility] [address] [place] [address] Phone Care Team Providers Care Wood Getter Name Role Phone Unavailable Primary Care Provider Unavailabl e Encounter Details Date Type Department Care Team (Late st Contact Info) Description 05/17/2016 Hospital Encounter [facility] OUT[facility] [address] [place] [phone] Brian Morejon MD [address] [place] [phone] [email or web address] Social History Tobacco Use Types Packs/Day Years [...] 9:30 AM EDT Office Visit [facility] [address] [place] [address] Wilian Medrano DO [address] [place] [address] [email or web address] documented as of this encounter Procedures Procedure [...] It is not the complete legal health record.[facility]
--- OUTSIDE RECORDS SUMMARY | 2020-09-23 | XMS_ITS | Encounter Summary ---
Author Organization Formerly [facility] Address [address] [place] [address] Phone Care Team Providers Care Tools Programmer Name Role Phone Toi Son DO Unavailable Cami Rose PELLET MACHINE OPERATOR Unavailable [phone] Virgen Perez PELLET MACHINE OPERATOR Unavailable Tori Dawkins MD Unavailable Ciro Em MD Unavailable Sara Oropeza DO Unavailable Dominique Damon MD Unavailable [phone] Alyssa Pham MD Unavailable [phone] Va Dominguez PELLET MACHINE OPERATOR Unavailable Toi Son DO Primary Care Provider Encounter Details Date Type Department Care Team (Late st Contact Info) Description 09/23/2020 Hospital Encounter [facility] [address] [place] [phone] Brian Morejon MD [address] [place] [phone] [email or web address] .[email or web address] Social History Tobacco Use Types Packs/Day Years [...] 9:30 AM EDT Office Visit [facility] [address] [place] [phone] Wilian Medrano DO [address] [place] [address] documented as of this encounter Procedures Procedure [...] on filedocumented in this encounter Care Teams Tools Programmer Relationship Specialty Start Date End Date Toi Son DO PCP - General 04/13/17 06/14/24 Toi Son DO Historical LMR Provider 01/28/17 Cami Rose PELLET MACHINE OPERATOR [address] [place] [address] Historical LMR Provider 01/28/17 04/17/21 Virgen Perez PELLET MACHINE OPERATOR [address] [place] [phone] [email or web address] Historical LMR Provider 01/28/17 2 Tori Dawkins MD [address] [place] [address] Historical LMR Provider 01/28/17 Ciro Em MD [address] [place] [address] Historical LMR Provider 01/28/17 04/17/21 Sara Oropeza DO [address] [place] [address] Historical LMR Provider 01/28/17 2 Dominique Damon MD [address] [place] [address] Historical LMR Provider 01/28/17 2 Alyssa Pham MD [address] [place] [address] Historical LMR Provider 01/28/172 2 Va Dominguez NP [address] [place] [address] Historical LMR Provider 01/28/17 2 documented as of this encounter Additional Source Comments The information contained in this document represents components of the legal health record. It is not the complete legal health record.Formerly [facility]
--- NOTE | ~2024-12-25 | XR_ITS ---
EXAM: 4 view cervical spine TECHNIQUE: AP open-mouth odontoid, Fuchs, AP, and lateral views of the cervical spine INDICATION: Neck pain PRIOR: None FINDINGS: There is straightening of the cervical lordosis. There is no prevertebral soft tissue swelling. C2-3 demonstrates non segmentation of the facets. C4-5 demonstrates non segmentation of the facets. C5-6 demonstrates mild grade 1 retrolisthesis with disc space narrowing and posterior osteophytes. C6-7 demonstrates mild disc space narrowing and endplate osteophytes. XR/XR cervical spine 4V IMPRESSION: There is straightening of the expected cervical lordosis. This can be idiopathic, but can also be related to degenerative change, muscle spasm, or posterior soft tissue injury. Degenerative disc disease is evident at C5-6-7 with mild grade 1 anterolisthesis at C5-6. There appears to be nonsegmentation of the facets at C2-3 and also at C4-5. Electronically signed by: Ziggy Cooper MD 12/25/2024 03:55 PM EDT
--- OUTSIDE RECORDS SUMMARY | 2024-12-25 18:41 | XMS_ITS | Encounter Summary ---
Author Organization [facility] Address [address] [place] [address] Phone Care Team Providers Care Cushion Gum Applicator Name Role Phone Toi Son DO Unavailable Cami Rose SANITARY CHEMIST Unavailable Virgen Perez SANITARY CHEMIST Unavailable [phone] Tori Dawkins MD Unavailable Ciro Em MD Unavailable Sara Oropeza DO Unavailable Dominique Damon MD Unavailable [phone] Alyssa Pham MD Unavailable [phone] Va Dominguez SANITARY CHEMIST Unavailable Toi Son DO Primary Care Provider [phone] Toi Son DO Primary Care Provider [phone] Encounter Details Date Type Department Care Team (Late st Contact Info) Description 06/01/2020 Transcribe Orders [facility]FT Lab [address] [place] [address] Toi Son DO [address] [place] [address] Social History Tobacco Use Types Packs/Day Years Used Date Smoking Tobacco: Former Smokeless Tobacco: Never Alcohol Use Standard Drinks/Week Comments Yes 2 (1 standard drink = 0.6 oz pur e alcohol) Comments Unknown Sex and Gender Information Value Date Recorded [...] 9:30 AM EDT Office Visit [facility] [address] [place] [address] Wilian Medrano DO [address] [place] [address] documented as of this encounter Visit Diagnoses Not on filedocumented in this encounter Care Teams Cushion Gum Applicator Relationship Specialty Start Date End Date Toi Son DO PCP - General 04/13/17 06/14/24 Toi Son DO [address] [place] [address] PCP - General Internal Medicine 06/15/24 Toi Son DO [email or web address] Historical LMR Provider 01/28/17 Cami Rose, SANITARY CHEMIST [address] [place] [address] [email or web address] Historical LMR Provider 01/28/17 04/17/21 Virgen Perez NP [address] [place] [address] [email or web address] Historical LMR Provider 01/28/17 2 Tori Dawkins MD [address] [place] [address], [address] [place] [address] [email or web address] Historical LMR Provider 01/28/17 Ciro Em MD [address] [place] [address] [email or web address] Historical LMR Provider 01/28/17 04/17/21 Sara Oropeza DO [address] [place] [address] Historical LMR Provider 01/28/17 2 Dominique Damon MD [address] [place] [address] Historical LMR Provider 01/28/17 2 Alyssa Pham MD [address] [place] [address] Historical LMR Provider 01/28/17 2 Va Dominguez NP [address] [place] [address] Historical LMR Provider 01/28/17 2 documented as of this encounter Additional Source Comments The information contained in this document represents components of the legal health record. It is not the complete legal health record.[facility]
--- OUTSIDE RECORDS SUMMARY | 2024-12-25 18:41 | XMS_ITS | Encounter Summary ---
Author Organization [facility] Address [address] [facility] [address] [facility] [address] [place] [address] Phone Care Team Providers Care Bucket Pusher Name Role Phone Toi Son DO Unavailable Cami Rose CARD SORTER Unavailable [phone] Virgen Perez CARD SORTER Unavailable [phone] Tori Dawkins MD Unavailable Ciro Em MD Unavailable Sara Oropeza DO Unavailable Dominique Damon MD Unavailable [phone] Alyssa Pham MD Unavailable [phone] Va Dominguez CARD SORTER Unavailable Toi Son DO Primary Care Provider [phone] Toi Son DO Primary Care Provider [phone] Encounter Details Date Type Department Care Team (Late st Contact Info) Description 2019 Procedure Pass [facility], [facility] [address] [place] [address] Social History Tobacco Use Types Packs/Day Years [...] 9:30 AM EDT Office Visit [facility] [address] [place] [address] Wilian Medrano DO [address] [place] [address] documented as of this encounter Visit Diagnoses Not on filedocumented in this encounter Care Teams Bucket Pusher Relationship Specialty Start Date End Date Toi Son DO [email or web address] PCP - General 04/13/17 06/14/24 Toi Son DO [address] [place] [address] [email or web address] PCP - General Internal Medicine 06/15/24 Toi Son DO [email or web address] Historical LMR Provider 01/28/17 Cami Rose, CARD SORTER [address] [place] [address] Historical LMR Provider 01/28/17 04/17/21 Virgen Perez NP [address] [place] [address] [email or web address] Historical LMR Provider 01/28/17 2 Tori Dawkins MD [address] [facility], 2nd [place] [address] [email or web address] Historical LMR Provider 01/28/17 Ciro Em MD [address] [place] [address] [email or web address] Historical LMR Provider 01/28/17 04/17/21 Sara Oropeza DO [address] [place] [address] Historical LMR Provider 01/28/17 2 Dominique Damon MD [address] [place] [address] Historical LMR Provider 01/28/17 2 Alyssa Pham MD [address] [place] [address] Historical LMR Provider 01/28/17 2 Va Dominguez NP [address] [place] [address] Historical LMR Provider 01/28/17 2 documented as of this encounter Additional Source Comments The information contained in this document represents components of the legal health record. It is not the complete legal health record.[facility]
--- OUTSIDE RECORDS SUMMARY | 2024-12-25 18:41 | XMS_ITS | Continuity of Care Document ---
Author Organization [facility] Address [address] [place] [address] Phone [phone] Social History Type Date Description Comments Sex Female Sex Unknown Medical Devices Description No Information Available Encounters Description No Information Available Assessments Description No Information Available Plan of Treatment No Information Available Functional Status Description No Information Available Mental Status Description No Information Available Referrals Description No Information Available
--- OUTSIDE RECORDS SUMMARY | 2024-12-25 18:41 | XMS_ITS | Encounter Summary ---
Author Organization [facility] Address [address] [place] [address] Phone Care Team Providers Care Social Service Assistant Name Role Phone Toi Son DO Unavailable Bigda, Toi A DO Primary Care Provider [phone] Bigda, Toi A DO Primary Care Provider [phone] Encounter Details Date Type Department Care Team (Latest Contact Info) Description 12/08/[address] [facility] Laboratory [address] [place] [address] [address] Jossie Magallanes NP 10 [place] [address] Chronic blood loss anemia (Primary Dx) Social History Tobacco Use Types Packs/Day Years Used Date Smoking Tobacco: Former Smokeless Tobacco: Never Alcohol Use Standard Drinks/Week Comments Yes 2 (1 standard drink = 0.6 oz pur e alcohol) Comments No Sex and Gender Information Value [...] 9:30 AM EDT Office Visit [facility] [address] [place] [address] Wilian Medrano DO 22 [place] [address] [email or web address] documented as of this encounter Results * (ABNORMAL) Fecal immunochemical test x1 (FIT) (01/20/2022 5:23 PM EDT) Pathologist [facility] Immuno Fecal Occult Positive(A ) Negative [facility] Stool (Stool) 01/20/2022 5:2 3 PM EDT 01/20/2022 5:27 PM EDT Jossie Magallanes BILINGUAL TEACHER ASSISTANT BODY FLUIDS AND STOOLS OR DERABLES Final Result Performing Organization Address City/[facility]/ZIP Co de Phone Number [address] [address] * Iron and iron binding capacity (12/08/2021 4:12 PM EDT) [facility] IRON 64 30 - 160 ug/dL [facility] IRON BINDING CAPACITY 410 228 - 428 ug/dL [facility] TRANSFERRIN SATURAT. 16 15 - 50 % [facility] Blood 12/08/2021 4:12 PM EDT 12/08/2021 4:16 PM EDT Jossie Magallanes BILINGUAL TEACHER ASSISTANT LAB BLOOD ORDERABLES Sharron l Result [address] [address] * (ABNORMAL) CBC (12/08/2021 4:12 PM EDT) [facility] WBC 6.00 4.00 - 11.00 K/uL [facility] RBC 4.69 3.72 - 5.30 M/uL [facility] HGB 13.6 11.4 - 15.9 g/dL [facility] HCT 42.6 34.2 - 46.8 % [facility] PLT 340 140 - 430 K/uL [facility] MCV 90.8 78.0 - 97.0 fL [facility] MCH 29.0 25.0 - 33.0 pg [facility] MCHC 31.9(L) 32.0 - 36.0 g/dL [facility] RDW 15.1 11.0 - 16.0 % [facility] MPV 10.0 8.4 - 12.8 fl [facility] Blood 12/08/2021 4:12 PM EDT 12/08/2021 4:16 PM EDT us Jossie Magallanes BILINGUAL TEACHER ASSISTANT LAB BLOOD ORDERABLES Sharron l Result Performing Organization Address City/State/[facility] Co de Phone Number [facility] [address] [place] [address] documented in this encounter Visit Diagnoses Diagnosis 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 It is not the complete legal health record.[facility]
--- OUTSIDE RECORDS SUMMARY | 2024-12-25 18:41 | XMS_ITS | Encounter Summary ---
Author Organization [facility] Address [address] [place] [address] Phone Care Team Providers Care Stretcher Operator Name Role Phone Toi Son DO Unavailable Cami Rose BEEHIVE KILN SUPERVISOR Unavailable [phone] Virgen Perez BEEHIVE KILN SUPERVISOR Unavailable [phone] Tori Dawkins MD Unavailable Ciro Em MD Unavailable Sara Oropeza DO Unavailable Dominique Damon MD Unavailable [phone] Alyssa Pham MD Unavailable [phone] Va Dominguez BEEHIVE KILN SUPERVISOR Unavailable Toi Son DO Primary Care Provider [phone] Toi Son DO Primary Care Provider [phone] Encounter Details Date Type Department Care Team (Late st Contact Info) Description 06/01/2017 Procedure Pass [facility] Endoscopy Admitting Dept Virtual Department [address] [place] [address] Social History Tobacco Use Types Packs/Day Years [...] 9:30 AM EDT Office Visit [facility] [address] [place] [address] Wilian Medrano DO [address] [place] [address] documented as of this encounter Visit Diagnoses Not on filedocumented in this encounter Care Teams Stretcher Operator Relationship Specialty Start Date End Date Toi Son DO PCP - General 04/13/17 06/14/24 Toi Son DO [address] [place] [address] PCP - General Internal Medicine 06/15/24 Toi Son DO [email or web address] Historical LMR Provider 01/28/17 Cami Rose, BEEHIVE KILN SUPERVISOR [address] [place] [address] Historical LMR Provider 01/28/17 04/17/21 Virgen Perez NP [address] [place] [address] [email or web address] Historical LMR Provider 01/28/17 2 Tori Dawkins MD [address] [place] [address], 2nd [place] [address] [email or web address] Historical LMR Provider 01/28/17 Ciro Em MD [address] [place] [address] [email or web address] Historical LMR Provider 01/28/17 04/17/21 Sara Oropeza DO [address] [place] [address] Historical LMR Provider 01/28/17 2 Dominique Damon MD [address] [place] [address] Historical LMR Provider 01/28/17 2 Alyssa Pham MD [address] [place] [address] Historical LMR Provider 01/28/17 2 Va Dominguez NP [address] [place] [address] Historical LMR Provider 01/28/17 2 documented as of this encounter Additional Source Comments The information contained in this document represents components of the legal health record. It is not the complete legal health record.[facility]
--- OUTSIDE RECORDS SUMMARY | 2024-12-25 18:41 | XMS_ITS | Patient Health Record ---
Author Organization [facility] Address [address] [place] [phone] Support Name Relationship Address Phone Swati Jyoti Guarantor Unknown Reason For Referral No Information Medications Medication SIG (Take, Route, Frequency, Duration) Notes Start Date End Date Status MUPIROCIN 2% OINTMENT 1 APPLICATION TOP as directed Chris02/27/2010 Entered by OLIVERIO OLIVERA 02/27/2010 Active Problems Problem Type SNOMED Code ICD Code Onset Dates Problem Status W/U Status Risk Notes Problem Bronchitis (93012054) Bronchitis, not specified as acute or chronic (490) 02/28/20 10 Active confirmed Chris: Bronchit is; Problem Cellulitis (374822483) Cellulitis and abscess of unspecified site (682.9) 02/28/20 10 Active confirmed Chris: ear; Cellulit is; Problem Osteoarthritis (519207709) Osteoarthrosis , unspecified whether generalized or localized, unspecified site (715.90) 02/28/20 10 Active confirmed Chris: back and neck; Osteoart hritis; Problem Acute sinusitis (02743375) Acute sinusitis with symptoms > 10 days (461.9) 02/28/20 10 Active confirmed Chris: Sinusiti s; Plan Of Treatment No Information Insurance Providers Payer Name Payer Address Payer Phone Subscriber Number Group Number Insured Name Patient Relationship to Insured Coverage Start Date Coverage End Date [facility] [address] [place] [address] [phone] [id number] [facility] Jyoti Longoria Self - patient is the insured
--- OUTSIDE RECORDS SUMMARY | 2024-12-25 18:41 | XMS_ITS | Clinical Summary ---
Author Organization [facility] Address [address] [place] [address] Phone Care Team Providers Care Media Relations Intern Name Role Phone NamitakayleeYoel DO Unavailable Yoel Nagel DO Primary Care Provider [phone] Allergies Active Allergy Reactions Criticality Noted Date Comments Erythromycin Unknown 08/23/2013 Sulfa (Sulfonamide Antibiotics) Unknown 08/08 Medications dextroamphetamine- amphetamine (ADDERALL) 15 mg Tab tablet 15 mg. Active albuterol 90 mcg/actuation inhaler 2 puffs as needed 07/06/19 11 Active multivitamin-computer forensics examiner als-lutein (MULTIVITAMIN 50 PLUS) Tab daily. Active calcium carbonate-vitamin D3 500 mg(1,250mg) -125 unit per tablet calcium carbonate 500 mg-vitamin D3 3.125 mcg (125 unit) tablet Take by oral route. Active vitamin E acetate (VITAMIN E ORAL) Take by mouth. Active ascorbic acid (VITAMIN C ORAL) Take by mouth. Active ubidecarenone (ULTRA COQ10 ORAL) Take by mouth. Active MAGNESIUM ORAL Take by mouth. Active cholecalciferol, vitamin D3, (VITAMIN D3 ORAL) Take by mouth. Active omeprazole (PRILOSEC) 20 MG capsule omeprazole 20 mg capsule,delayed release TAKE 1 CAPSULE BY MOUTH EVERY DAY FOR 30 DAYS Active nystatin (NYSTOP) powder Apply topically 4 (four) times a day. 15 g 07/29/19 Active Additional Information Patient not taking.Reported on 08/30/2024 diclofenac sodium (VOLTAREN) 1 % Gel Apply 4 g topically 4 (four) times a day. 450 g 02/22/20 Active Additional Information Patient taking differently:4 g Topical4 times daily PRN, Reported on 08/30/2024 celecoxib (CELEBREX) 200 MG capsuleIndications :Pes anserine bursitis,Primary osteoarthritis of left knee Take 1 capsule (200 mg total) by mouth daily. Take with food. 30 capsule 03/23/20 Active Additional Information Patient taking differently:200 mg OralDaily as needed, Take with food., Reported on 08/30/2024 phytonadione, vitamin K1, (MEPHYTON) 5 mg tablet Take 5 mg by mouth once. Active triamcinolone acetonide 0.5 % cream Apply topically 3 (three) times a day. 30 g 09/15/19 Active Additional Information Patient not taking.Reported on 08/30/2024 ZINC ACETATE ORAL Take by mouth. Active cholecalciferol, vitD3,/vit K2 (VITAMIN D3-VITAMIN K2 ORAL) Take 1 tablet by mouth daily. Active Active Problems Problem Noted Date Diagnosed Date Age-related osteoporosis wit hout current pathological fracture 03/04/2024 Assessment & Plan (08/30/2024 11:50 AM EDT): She continues on calcium, vitamin D supplements weightbearing exercise and she is using vibratory platform. She is due to repeat DXA scan on 06/07/2025. I did not find any additional risk factors for osteoporosis other than what is indicated in the HPI. She does not want to use antiresorptive medications presently. I did request CTX and procollagen bone turnover markers that she should do fasting 2 weeks prior to the follow-up visit in 1 year. Assessment & Plan (06/20/2024 12:01 PM EDT): Unfortunately not all the lab work was done. Her vitamin D is slightly above the reference range I do not think that this is really a problem. She can continue her 5000 units of vitamin D. Continues calcium supplements. She is not really interested in using antiresorptive medications presently. She states that she noticed that her bone mineral density decreased after being placed on proton pump inhibitors and she stopped these. So she is hoping that her bone mineral density would improve. The question is whether it would improve sufficiently. I did inform her that based on her current bone mineral density she is at very high risk of fracture. But she is concerned about jaw necrosis. I did tell her that the incidence is 1 and 1000 so is very low risk. She prefers to await the biochemical markers that I have requested and possibly repeat DXA scan by May 2025. She states that she would be willing to take antiresorptive medications but only as a last resort. So at this point I do not know if her bone mineral density would improve or get worse we just have to wait and see. I will give her a follow-up appointment in 3 months time to review her lab results. However, if these results are resulted sooner I am willing to see her prior to that she will just be placed on a cancellation list. Assessment & Plan (03/04/2024 10:44 AM EST): 68-year-old woman who was diagnosed with osteoporosis on 05/13/2019 with calcium and vitamin D had an improvement but reverted to osteoporosis by 06/07/2023. Her risk factors for osteoporosis include lower BMI, , age, menopause, use of proton pump inhibitors, use of SSRIs for 1 year, and chronic use of oral prednisone on a yearly basis. She fractured forearm which was traumatic. She has had 1 inch decrease in height. She has not used any antiresorptive medications. Presently she is taking calcium and vitamin D supplements. At this point I will do biochemical workup for evaluation of secondary causes of osteoporosis. She is for the most part opposed to oral pharmaceuticals. She prefers not to use any. However is willing to consider it if there is no other alternative. I have given her information as follows regarding osteoporotic medications so that she can review. The antiresorptive medications are the bisphosphonates and rank ligand antagonists. The bisphosphonates come in oral form and IV form. The oral form is alendronate, this is a 70 mg tablet that is taken once a week with water on an empty stomach. The patient must not eat for 30 minutes and remain upright in a sitting or standing position. This medication may be associated with reflux. This medication can be used up to 5 years and at that point we reevaluate. If the bone density has not improved we can switch to another medication or continue the same medications for another 5 years. If there is improvement in bone mineral density then we can do a drug holiday. The IV form is called zoledronic acid/ Reclast. This is administered in the hospital as a yearly infusion. This medication can be used up to 3 years. Again this medication also can be repeated for another 3 years if there is insufficient bone mineral density or the medication could be switch for something else. If good bone improvement then we can consider a drug holiday. It is associated with flulike symptoms such as muscle aches, headaches, etc. The other antiresorptive medication is rank ligand antagonist such as Prolia/ denosumab. This medication is administered subcutaneously in the office every 6 months. With this medication you have to have adequate calcium intake otherwise hypocalcemia may develop. Furthermore the medication must not be missed there is a 2-week window in which the patient must have the injection. If the patient misses the injection then there will be rapid decrease in bone mineral density. Furthermore if the patient wants to stop the medication that we will have to take alendronate for period of 1 year. If the patient does not take any medications at all after stopping Prolia then they will return to their original bone mineral density within 12 months. All of these medications are associated with atypical femur fracture and jaw necrosis after prolonged use. Prolonged use is considered to be approximately 5 years. The risk of atypical femur fracture approximately 0.8% and for jaw necrosis is approximately 0.1%. This can translate to up to 5 people out of 10,000. There are other medications such as anabolic hormones. These include Forteo and Tymlos which are basically the same medication but different brands. These medications are injected by the patient on a daily basis at nighttime right before going to bed. This medication is good for period of 2 years. It is administered in the evening because it could be associated with dizziness. The last medication is Evenity which is administered in the office on a monthly basis for period of 1 year. This medication cannot be used if the patient had a myocardial infarction within the last 6 months. The anabolic hormones are very expensive and normally for a patient who has not use any of these medications they usually get one of the antiresorptive medications such as alendronate, zoledronic acid or Prolia. Immunizations Immunization Administration Dates Next Due COVID-19 (Pre) Macey neca Vaccine, rS-ChAdOx1, PF 07/09/2020,06/18/2020 COVID-19 (Pre) Pfizer Vaccine, mRNA, PF ,06/18/2020 Influenza Quadrivalent Preservative Free IM 04/10 Influenza Quadrivalent w/ Preservative IM 2020,01/15/2020 Influenza, Unspecified Formulation 03/11/2022 Pneumococcal polysaccharide PPSV23 04/24/2019 Zoster recombinant 01/15/2020,04/24/2019 Family History Medical History Relation Comments Cancer Father Stroke Mother Hearing loss Paternal Grandmother Relation Status Comments Father Alive Mother Alive Paternal Grandmother Social History Tobacco Use Types Packs/Day Years [...] not to disclose 2019 11:44 AM EDT Last Filed Vital Signs Vital Sign Reading Time Taken Comments Blood Pressure 118/70 08/30/2024 11:35 AM EDT Pulse 94 08/30/2024 11:35 AM EDT Temperature 36.9 C (98.4 F) 09/15/2023 9:21 AM EDT Respiratory Rate 16 09/15/2023 9:21 AM EDT Oxygen Saturation 99% 08/30/2024 11:35 AM EDT Inhaled Oxygen Concentration - - Weight 55.8 kg (123 lb) 08/30/2024 11:35 AM EDT Height 160.2 cm (5' 3.07 ) 08/30/2024 11:35 AM E DT Body Mass Index 21.74 08/30/2024 11:35 AM EDT Plan of Treatment Upcoming Encounters Date Type Department Care Team (Late st Contact Info) Description 09/08/2025 9:30 AM EDT Office Visit [facility] [address] [place] [address] [phone] Wilian Medrano DO [address] [place] [phone] [email or web address] Health Maintenance Due Date Last Done Comments LIPID PANEL 1954 DEPRESSION SCREENING 1966 HEPATITIS C SCREENING 1972 MAMMOGRAM 1994 COLOGUARD 11/07/1999 FOBT 11/07/1999 SIGMOIDOSCOPY 11/07/1999 VIRTUAL COLONOSCOPY 11/07/1999 PNEUMOCOCCAL VACCINES (50+ years) (2 of 2 - PCV) 04/24/2020 04/24/2019 FIT TEST 01/20/2023 01/20/2022 INFLUENZA VACCINE (#1) 2024 2, 04/24/2020, 01/15/2020, Additional history exists COVID-19 VACCINE ( season) 2024 09/15/2022, 02/28/2022, 03/29/2021, Additional history exists COLONOSCOPY 06/01/2027 06/01/2017 COLORECTAL CANCER SCREENING 06/01/2027 RSV VACCINE (1 - 1-dose 75+ series) 2029 Adult Td,Tdap Booster 08/11/2032 08/11/2022 ZOSTER VACCINES Completed 01/15/2020, 04/24/2019 HEPATITIS A VACCINES Aged Out 10/19/2022 No long er eligible based on patient's age to complete this topic SMOKING STATUS SCREENING (Once After 26 Yrs) Completed 06/20/2024 OSTEOPOROSIS SCREENING INITIAL (ONE-TIME) Completed 08/30/2024 HIB VACCINES Aged Out No longer eligi ble based on patient's age to complete this topic MENINGOCOCCAL VACCINES (ACWY) Aged Out No longer eligible based on patient's age to complete this topic MENINGOCOCCAL VACCINES (B) Aged Out N o longer eligible based on patient's age to complete this topic Medical Devices Implanted Type Area Pharmaceutical Sales Device Identifier Shelf Expiration Date Model / Serial / Lot Bilat Feet Procedures Procedure Name Priority Date/Time Associated Diagnosis Comments BD DXA MONITORING Routine 08/30/2024 11: 47 AM EDT Age-related osteoporosis without current pathological fracture HC BLOOD OCCULT FECAL HGB DETER IA QUAL FECES 1-3 Routine 01/20/2022 5:23 PM EDT Chronic blood loss anemia ENDOSCOPY, COLON 06/01/2017 9:44 AM EST from Last 3 Months or Most Recently Relevant to Health Maintenance Results * (ABNORMAL) Fecal immunochemical test x1 (FIT) (01/20/2022 5:23 PM EDT) Immuno Fecal Occult Positive(A ) Negative [facility] Stool (Stool) 01/20/2022 5:2 3 PM EDT 01/20/2022 5:27 PM EDT Jossie Magallanes NP BODY FLUIDS AND STOOLS OR DERABLES Final Result [address] [address] * ENDOSCOPY, COLON (06/01/2017 9:44 AM EST) Narrative Transcriptions Bhargav Espinal MD - 06/01/2017 9:44 AM EST Addendum Number: 1 Addendum Date: 06/08/2017 5:28:38 PM 5 mm sessile polyp removed with cold biopsy forceps roby. BHARGAV ESPINAL MD 06/08/2017 5:29:38 PM This report has been signed electronically. Patient Name: Jyoti Trevinoming Attending MD:: BHARGAV ESPINAL MD Procedure Date: 06/01/2017 9:44 AM Date of : 1955 Age: 61 Admit Type: Outpatient Gender: Female Room: [place] [address] Referring MD: YOEL NAGEL DO Exam Type: Colonoscopy Indications: High risk colon cancer surveillance: Personal historyof colonic polyps Medications: Sedation Required Anesthesia Staff Assistance Procedure: Informed consent was obtained from the patient after discussion of the indications, limitations,alternatives, benefits, and risks of the procedure. Risksspecifically discussed include but are not limited to medication reactions, missed lesions, bleeding, perforation, orthe need for emergent surgery. Throughout the procedure, the patient's blood pressure, pulse, end-tidal CO2, and oxygen saturations were monitored continuously. The Olympus pediatric colonoscope PCF 160AL #4 was introduced through the anus and advanced to the cecum, identified by appendiceal orifice and ileocecal valve.The colonoscopy was performed without difficulty. Thepatient tolerated the procedure well. The quality of the bowel preparation was good. Complications: No immediate complications. Estimated blood loss:None. Findings: The perianal and digital rectal examinations werenormal. The colon (entire examined portion) appeared normal. Internal hemorrhoids were found during retroflexion.The hemorrhoids were mild. Impression: - The entire examined colon is normal. - Internal hemorrhoids. - No specimens collected. Recommendation: - Discharge patient to home (ambulatory). - Repeat colonoscopy in 5 years for surveillance. BHARGAV ESPINAL MD 06/01/2017 10:24:23 AM This report has been signed electronically. Number of Addenda: 1 Note Initiated On: 06/01/2017 9:44 AM Procedure Code(s): --- Professional --- G0105, Colorectal cancer screening; colonoscopy on individual at high risk --- Technical --- G0105, Colorectal cancer screening; colonoscopy on individual at high risk Diagnosis Code(s): --- Professional --- Z86.010, Personal history of colonic polyps K64.8, Other hemorrhoids --- Technical --- Z86.010, Personal history of colonic polyps K64.8, Other hemorrhoids CPT copyright 2016 [employer]. All rights reserved. The codes documented in this report are preliminary and upon agricultural produce washer reviewmay be revised to meet current compliance requirements. [address] [place] [address] [place] Yoel Nagel DO GI PROCEDURE ORDERABLES Edited R esult - Final from Last 3 Months or Most Recently Relevant to Health Maintenance Insurance MEDICARE PART A & B [employer] MEDEX SUPPLEMENT MEDICARE PART A & B [employer] MEDEX SUPPLEMENT MEDICARE PART A & B [employer] MEDEX SUPPLEMENT MEDICARE PART A & B [employer] MEDEX SUPPLEMENT MEDICARE PART A & B [employer] MEDEX SUPPLEMENT MEDICARE PART A & B [employer] MEDEX SUPPLEMENT MEDICARE PART A & B [employer] MEDEX SUPPLEMENT MEDICARE PART A & B Tele[employer] MEDEX SUPPLEMENT MEDICARE PART A & B [facility] MEDEX SUPPLEMENT Care Teams Media Relations Intern Relationship Specialty Start Date End Date Yoel Nagel DO [address] [place] [address] PCP - General Internal Medicine 06/15/24 Yoel Nagel DO Historical LMR Provider 01/28/17 Additional Source Comments The information contained in this document represents components of the legal health record. It is not the complete legal health record.[facility]
--- OUTSIDE RECORDS SUMMARY | 2024-12-25 18:41 | XMS_ITS | Encounter Summary ---
Author Organization [facility] Address [address] [facility] [address] [place] [address] Phone Care Team Providers Care Broke Handler Name Role Phone Toi Son DO Unavailable Bigda, Toi A DO Primary Care Provider [phone] Bigda, Toi A DO Primary Care Provider [phone] Reason for Visit * Reason Comments Medication Refill Encounter Details Date Type Department Care Team (Late st Contact Info) Description 05/24/2023 Refill [facility] at [address] [address] Tamica Marin, [address] [place] [address] [email or web address] Medication Refill Social History Tobacco Use Types Packs/Day Years [...] 9:30 AM EDT Office Visit [facility] [address] [place] [address] Wilian Medrano DO [address] [place] [address] documented as of this encounter Visit Diagnoses Not on filedocumented in this encounter Care Teams Broke Handler Relationship Specialty Start Date End Date Toi Son DO PCP - General 04/13/17 06/14/24 Toi Son DO [address] [place] [address] PCP - General Internal Medicine 06/15/24 Toi Son DO Historical LMR Provider 01/28/17 documented as of this encounter Additional Source Comments The information contained in this document represents components of the legal health record. It is not the complete legal health record.[facility]
--- OUTSIDE RECORDS SUMMARY | 2024-12-25 18:41 | XMS_ITS | Encounter Summary ---
Author Organization [facility] Address [address] [facility] [address] [place] [address] Phone Care Team Providers Care Instrumentation Technologist Name Role Phone Toi Son DO Unavailable Cami Rose HAND LASTER Unavailable [phone] Virgen Perez HAND LASTER Unavailable [phone] Tori Dawkins MD Unavailable Ciro Em MD Unavailable Sara Oropeza DO Unavailable Dominique Damon MD Unavailable Alyssa Pham MD Unavailable [phone] Va Dominguez HAND LASTER Unavailable Toi Son DO Primary Care Provider [phone] Toi Son DO Primary Care Provider [phone] Encounter Details Date Type Department Care Team (Late st Contact Info) Description 2019 Procedure Pass [facility], Ct Scan - [facility] [address] [place] [address] Social History Tobacco Use Types Packs/Day Years [...] 9:30 AM EDT Office Visit [facility] [address] [place] [address] Wilian Medrano DO [address] [place] [address] documented as of this encounter Visit Diagnoses Not on filedocumented in this encounter Care Teams Instrumentation Technologist Relationship Specialty Start Date End Date Toi Son DO PCP - General 04/13/17 06/14/24 Toi Son DO [address] [place] [address] PCP - General Internal Medicine 06/15/24 Toi Son DO Historical LMR Provider 01/28/17 Cami Rose, HAND LASTER [address] [place] [address] Historical LMR Provider 01/28/17 04/17/21 Virgen Perez NP [address] [place] [address] [email or web address] Historical LMR Provider 01/28/17 2 Tori Dawkins MD [address] [facility], 2nd [place] [address] [email or web address] Historical LMR Provider 01/28/17 Ciro Em MD [address] [place] [address] [email or web address] Historical LMR Provider 01/28/17 04/17/21 Sara Oropeza DO [address] [place] [address] Historical LMR Provider 01/28/17 2 Dominique Damon MD [address] [place] [address] Historical LMR Provider 01/28/17 2 Alyssa Pham MD [address] [place] [address] Historical LMR Provider 01/28/17 2 Va Dominguez NP [address] [place] [address] Historical LMR Provider 01/28/17 2 documented as of this encounter Additional Source Comments The information contained in this document represents components of the legal health record. It is not the complete legal health record.[facility]
== END 2024-12-25 15:09 | disposition home or self-care (01) ==
LOC: HO.XRAY 15:08
PROVIDERS: PCP Internal Medicine; Visit Provider Internal Medicine
DX: M54.2 Cervicalgia (principal)
CPT/HCPCS: 72050

== ENCOUNTER → 2024-12-25 15:41 | Outpatient (BNV) | payer MEDICARE, SELFPAY | PROVIDERS: PCP Internal Medicine; Visit Provider Radiology Diagnostic Radiology | DX: M50.322 Other cervical disc degeneration at C5-C6 level (principal) | CPT/HCPCS: 72050 ==

== ENCOUNTER 2025-03-15 11:24 | Outpatient (REF) | payer MEDICARE, SELFPAY ==
--- OUTSIDE RECORDS SUMMARY | 2016-05-17 | XMS_ITS | Encounter Summary ---
Author Organization [facility] Address [address] [facility] [address] [place] [address] Phone Care Team Providers Care Parking Lot Attendant Name Role Phone Unavailable Primary Care Provider Unavailabl e Encounter Details Date Type Department Care Team (Late st Contact Info) Description 05/17/2016 Hospital Encounter [facility] [address] [place] [phone] Brian Morejon MD [address] [place] [address] [email or web address] Social History Tobacco Use Types Packs/Day Years Used Date Smoking Tobacco: Never Smokeless Tobacco: Never Alcohol Use Standard Drinks/Week Comments Yes 2 (1 standard drink = 0.6 oz pur e alcohol) Education Answer Date Recorded Are you interested in more education? Not on connor e 08/05/2022 Are you concerned about learning? Not on file 08/05/2022 No 08/05/2022 No 08/05/2022 Digital Access Answer Date Recorded No 09/03/2022 No 09/03/2022 Reliable internet access at home? Not on file 09/03/2022 Device with a working camera? Not on file Comments No Sex and Gender Information Value Date Recorded Sex Assigned at Female 2019 11:44 AM EDT Legal Sex Female 9:55 PM EDT Gender Identity Female 2019 11:44 AM EDT Sexual Orientation Choose not to disclose 2019 11:44 AM EDT documented as of this encounter Plan of Treatment Upcoming Encounters Date Type Department Care Team (Late st Contact Info) Description 09/08/2025 9:30 AM EDT Office Visit [facility] [address] [place] [address] Wilian Medrano DO [address] [place] [address] [email or web address] documented as of this encounter Procedures Procedure Name Priority Date/Time Associated Diagnosis Comments CT HEAD OUTSIDE (NO INTERPRETATION) Routine 05/17/2016 12:00 AM EST documented in this encounter Results * CT Head Outside (No Interpretation) (05/17/2016 12:00 AM EST) Narrative [facility] INTERFACES - 12/22/2020 1:58 PM EDT This study is for PACS storage only and not for interpretation. us Brian Morejon MD IMG OUTSIDE IMAGING W/ OUT INTERPRETATION Final Result [facility] INTERFACES documented in this encounter Visit Diagnoses Not on filedocumented in this encounter Additional Source Comments The information contained in this document represents components of the legal health record. It is not the complete legal health record.[facility]
--- OUTSIDE RECORDS SUMMARY | 2020-09-22 23:00 | XMS_ITS | Encounter Summary ---
Author Organization [facility] Address [address] [place] [address] Phone Care Team Providers Care Photocomposing Machine Operator Name Role Phone Toi Son DO Unavailable Cami Rose DIRECT SERVICE PROVIDER Unavailable [phone] Virgen Perez DIRECT SERVICE PROVIDER Unavailable Tori Dawkins MD Unavailable Ciro Em MD Unavailable Sara Oropeza DO Unavailable Dominique Damon MD Unavailable [phone] Alyssa Pham MD Unavailable [phone] Va Dominguez DIRECT SERVICE PROVIDER Unavailable Toi Son DO Primary Care Provider Encounter Details Date Type Department Care Team (Late st Contact Info) Description 09/23/2020 Hospital Encounter [facility] OUTSIDE [address] [place] [phone] Brian Morejon MD [address] [place] [id number] [email or web address] Social History Tobacco Use Types Packs/Day [...] 9:30 AM EDT Office Visit [facility] [address] [place] [address] Wilian Medrano DO [address] [place] [phone] documented as of this encounter Procedures Procedure Name Priority Date/Time Associated Diagnosis Comments CT HEAD OUTSIDE (NO INTERPRETATION) Routine 09/23/2020 12:00 AM EDT documented in this encounter Results * CT Head Outside (No Interpretation) (09/23/2020 12:00 AM EDT) Narrative [facility] ROSALES INTERFACES - 12/22/2020 2:20 PM EDT This study is for PACS storage only and not for interpretation. us Brian ROSALES OUTSIDE IMAGING W/ OUT INTERPRETATION Final Result [facility] INTERFACES documented in this encounter Visit Diagnoses Not on filedocumented in this encounter Care Teams Photocomposing Machine Operator Relationship Specialty Start Date End Date Toi Son DO PCP - General 04/13/17 06/14/24 Toi Son DO Historical LMR Provider 01/28/17 Cami Rose DIRECT SERVICE PROVIDER [address] [place] [address] Historical LMR Provider 01/28/17 04/17/21 Virgen Perez DIRECT SERVICE PROVIDER [address] [place] [address] [email or web address] Historical LMR Provider 01/28/17 2 Tori Dawkins MD [address] [place] [address] Historical LMR Provider 01/28/17 Ciro Em MD [address] [place] [address] Historical LMR Provider 01/28/17 04/17/21 Sara Oropeza DO [address] [place] [address] Historical LMR Provider 01/28/17 2 Dominique Damon MD [address] [place] [address] Historical LMR Provider 01/28/17 2 Alyssa Pham MD [address] [place] [address] Historical LMR Provider 01/28/172 2 Va Dominguez NP [address] [place] [address] Historical LMR Provider 01/28/17 2 documented as of this encounter Additional Source Comments The information contained in this document represents components of the legal health record. It is not the complete legal health record.[facility]
--- NOTE | ~2025-03-15 | MR_ITS ---
CLINICAL HISTORY: LEFT ARM WEAKNESS MR cervical spine without gadolinium Comparison: None provided Findings: Visualized brain and signal intensity of the visualized cord are unremarkable. No acute fracture or marrow infiltration. Fused/partially fused C2/C3 and C4/C5 facet joints. Unremarkable paravertebral soft tissues. Multilevel disc dehydration. C5/C6: Severe bilateral neural foraminal stenosis. 2 mm (AP dimension) posterior disc osteophyte mildly flattens the opposing cord without causing significant central canal compromise. C6-C7: Severe bilateral neural foraminal stenosis. Up to 2 mm posterior (predominantly left subarticular) disc osteophyte without significant central canal compromise. C7/T1: Minimal grade 1 anterolisthesis. T1/T2: Minimal grade 1 anterolisthesis and mild right neural foraminal stenosis. Otherwise no significant central canal or neural foraminal stenosis. Query mild biapical lung scarring. IMPRESSION: Severe bilateral neural foraminal stenosis at C5/C6 and C6-C7. No significant central canal compromise. This document has been electronically signed by: Cristiane Sanchez MD on 03/18/2025 12:09:47
--- OUTSIDE RECORDS SUMMARY | 2025-03-15 11:27 | XMS_ITS | Continuity of Care Document ---
Author Organization [facility] Address [address] [facility] [address] [place] [address] Phone [phone] Social History Type Date Description Comments Sex Female Sex Unknown Medical Devices Description No Information Available Encounters Description No Information Available Assessments Description No Information Available Plan of Treatment No Information Available Functional Status Description No Information Available Mental Status Description No Information Available Referrals Description No Information Available
--- OUTSIDE RECORDS SUMMARY | 2025-03-15 11:28 | XMS_ITS | Encounter Summary ---
Author Organization [facility] Address [address] [facility] [address] [place] [address] Phone Care Team Providers Care Certified Surgical First Assistant Name Role Phone Toi Son DO Unavailable Bigda, Toi A DO Primary Care Provider [phone] Bigda, Toi A DO Primary Care Provider [phone] Encounter Details Date Type Department Care Team (Latest Contact Info) Description 12/08/2021 Transcribe Orders [facility] Phleb Nikole [address] [facility] [address] [place] [address] Jossie Magallanes NP [address] [place] [address] Chronic blood loss anemia (Primary Dx) Social [...] 9:30 AM EDT Office Visit [facility] [address] [place] [address] Wilian Medrano DO [address] [place] [address] [email or web address] documented as of this encounter Results * (ABNORMAL) Fecal immunochemical test x1 (FIT) (01/20/2022 5:23 PM EDT) Pathologist [facility] Immuno Fecal Occult Positive(A ) Negative [facility] Stool (Stool) 01/20/2022 5:2 3 PM EDT 01/20/2022 5:27 PM EDT Jossie Magallanes SENIOR ARCHITECTURAL DESIGNER LAB BODY FLUIDS AND STOOL ORDERABLES Final Result Performing Organization Address City/[facility]/ZIP Co de Phone Number [address] [address] * Iron and iron binding capacity (12/08/2021 4:12 PM EDT) Pathologist [facility] IRON 64 30 - 160 ug/dL [facility] IRON BINDING CAPACITY 410 228 - 428 ug/dL [facility] TRANSFERRIN SATURAT. 16 15 - 50 % [facility] Blood 12/08/2021 4:12 PM EDT 12/08/2021 4:16 PM EDT Jossie Magallanes NP LAB BLOOD BKR ORDERABLES Final Result Performing Organization Address City/[facility]/ZIP Co de Phone Number [address] [address] * (ABNORMAL) CBC (12/08/2021 4:12 PM EDT) Pathologist [facility] WBC 6.00 4.00 - 11.00 K/uL [facility] RBC 4.69 3.72 - 5.30 M/uL [facility] HGB 13.6 11.4 - 15.9 g/dL [facility] HCT 42.6 34.2 - 46.8 % [facility] PLT 340 140 - 430 K/uL [facility] MCV 90.8 78.0 - 97.0 fL [facility] MCH 29.0 25.0 - 33.0 pg [facility] MCHC 31.9(L) 32.0 - 36.0 g/dL [facility] RDW 15.1 11.0 - 16.0 % [facility] MPV 10.0 8.4 - 12.8 fl [facility] Blood 12/08/2021 4:12 PM EDT 12/08/2021 4:16 PM EDT us Jossie Magallanes SENIOR ARCHITECTURAL DESIGNER LAB BLOOD BKR ORDERABLES Final Result Performing Organization Address City/State/[facility] Co de Phone Number [facility] [address] [place] [address] documented in this encounter Visit Diagnoses Diagnosis 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 It is not the complete legal health record.[facility]
--- OUTSIDE RECORDS SUMMARY | 2025-03-15 11:28 | XMS_ITS | Encounter Summary ---
Author Organization [facility] Address [address] [facility] [address] [place] [address] Phone Care Team Providers Care Stripping And Booking Machine Operator Name Role Phone Toi Son DO Unavailable Cami Rose POST PARTUM NURSE Unavailable [phone] Virgen Perez POST PARTUM NURSE Unavailable [phone] Tori Dawkins MD Unavailable Ciro Em MD Unavailable Sara Oropeza DO Unavailable Dominique Damon MD Unavailable [phone] Alyssa Pham MD Unavailable [phone] Va Dominguez POST PARTUM NURSE Unavailable Toi Son DO Primary Care Provider [phone] Toi Son DO Primary Care Provider [phone] Encounter Details Date Type Department Care Team (Late st Contact Info) Description 06/01/2017 Procedure Pass [facility] Admitting Dept Virtual Department [address] [place] [address] Social History Tobacco Use Types Packs/Day Years [...] 9:30 AM EDT Office Visit [facility] [address] [place] [address] Wilian Medrano DO [address] [place] [address] documented as of this encounter Visit Diagnoses Not on filedocumented in this encounter Care Teams Stripping And Booking Machine Operator Relationship Specialty Start Date End Date Toi Son DO PCP - General 04/13/17 06/14/24 Toi Son DO [address] [place] [address] PCP - General Internal Medicine 06/15/24 Toi Son DO [email or web address] Historical LMR Provider 01/28/17 Cami Rose, POST PARTUM NURSE [address] [place] [address] Historical LMR Provider 01/28/17 04/17/21 Virgen Perez NP [address] [place] [address] [email or web address] Historical LMR Provider 01/28/17 2 Tori Dawkins MD [address] [place] [address], 2nd [place] [address] [email or web address] Historical LMR Provider 01/28/17 Ciro Em MD [address] [place] [address] [email or web address] Historical LMR Provider 01/28/17 04/17/21 Sara Oropeza DO [address] [place] [address] Historical LMR Provider 01/28/17 2 Dominique Damon MD [address] [place] [address] Historical LMR Provider 01/28/17 2 Alyssa Pham MD [address] [place] [address] Historical LMR Provider 01/28/17 2 Va Dominguez NP [address] [place] [address] Historical LMR Provider 01/28/17 2 documented as of this encounter Additional Source Comments The information contained in this document represents components of the legal health record. It is not the complete legal health record.[facility]
--- OUTSIDE RECORDS SUMMARY | 2025-03-15 11:28 | XMS_ITS | Data Portability ---
Author Organization [facility], Telehealth Patient Home Address [address] [place] [address] Assessment Encounter Date Assessment Date Assessment LastModified [...] healthy living. [email or web address] Not available 07/16/2024 07:21:26 12/25/2024 12/25/2024 [id number] [place] [id number] (OPERATIONS ADMINISTRATOR) MDM MODERATE MUST MEET 2 OUT OF 3 ELEMENTS: PROBLEMS, DATA OR RISK ELEMENT 1: PROBLEMS ADDRESSED 1 OR MORE CHRONIC ILLNESS WITH EXACERBATION OR 2 OR MORE STABLE CHRONIC ILLNESSES OR 1 UNDIAGNOSED NEW PROBLEM OR 1 ACUTE ILLNESS W/SYMPTOMS OR 1 ACUTE COMPLICATED INJURY ELEMENT 2: DATA MUST MEET 1 OF 3 CATEGORIES CATEGORY 1: REVIEW OF PRIOR EXTERNAL NOTES, REVIEW OF RESULTS, ORDERING OF EACH TEST, ASSESSMENT REQUIRING INDEPENDENT HISTORIAN OR CATEGORY 2: INDEPENDENT INTERPRETATION OF TESTS BY ANOTHER PHYSICIAN OR SPECIALIST OR CATEGORY 3: DISCUSSION OF MGT OR TEST INTERPRETATION W/EXTERNAL PHYSICIAN OR SPECIALIST ELEMENT 3: RISK RISK OF COMPLICATIONS AND/OR MORBIDITY OR MORTALITY OF PATIENT MANAGEMENT PROVIDER MUST THOROUGHLY DOCUMENT EACH ELEMENT THAT IS COVERED Not available 12/25/2024 14:04:00 Plan of Treatment Reminders Order Date Submit Date Provider Last Modified By Organization Details Last Modified Time Details Appointments FOLLOW UP 15 2024 04:15P M DR NAGEL Not available Not available Not available MEDICARE ANNUAL WELLNESS 2025 03:15P M DR NAGEL Not available Not available Not available Lab lipid panel, blood 2024 025 [facility], [address] [place] [address], [address], 07/22/2024 15:06:10 CMP, serum or plasma 2023 024 [facility], [address] [place] [address], [address], 05/26/2023 11:09:25 CBC w/ auto diff 2023 024 [facility], [address] [place] [address], [address], 05/26/2023 11:09:26 lipid panel, blood 2023 024 [facility], [address] [place] [address], [address], 05/26/2023 11:09:25 vitamin D, 25-hydrox y, total, serum 2023 024 [facility], [address] [place] [address], [address], 05/19/2023 15:10:22 iron + TIBC + ferritin, serum 2023 024 [facility], [address] [place] [address], [address], 05/19/2023 15:10:22 Referral None recorded. Procedures None recorded. Surgeries None recorded. Imaging XR, cervical spine, 2 or 3 view 2024 025 [email or web address] [facility] (Imaging), [address] [place] [address], [address], 12/25/2024 16:30:34 MRI, cervical spine, w/o contrast 2024 025 [facility] (Imaging), [address] [place], [address], 01/22/2025 11:03:28 event monitor 2024 025 [facility], [address] [place], [address], 08/19/2024 08:52:14 XR, chest, 2 view 2023 024 [facility], [address] [place], [address], 03/18/2024 08:32:28 XR, chest, 2 view 2023 024 [facility] (Imaging), [address] [place], [address], 03/18/2024 08:32:21 bone density 2023 024 [facility], [address] [place], [address], 06/07/2023 17:22:58 Medication Orders celecoxib 200 mg capsule 2024 025 [facility]acy #2071, [address] [place], [address], 12/25/2024 14:02:07 clotrimaz ole-betam ethasone 1 %-0.05 % topical cream 2024 025 [facility]acy #[id number], [address] [place], [address], 12/25/2024 14:02:04 doxycycli ne hyclate 100 mg capsule 2024 025 [facility], [address] [place], [address], 12/25/2024 13:39:50 prednison e 10 mg tablet 2023 [address]24 [address] [facility] [address] [address] [place], [address], 07/22/2024 14:22:15 albuterol sulfate HFA 90 mcg/actua tion aerosol inhaler 2023 024 [facility] #2071, [address] [place], [address], 04/01/2024 11:14:17 Zithromax Z-Cj 250 mg tablet 2023 024 [facility] [address] [place], [address], 04/01/2024 11:11:26 Medrol (Cj) 4 mg tablets in a dose pack 2023 024 [facility] [address] [place], [address], 04/01/2024 11:11:15 omeprazol e 20 mg capsule,d elayed release 2023 [address] [place], [address], 07/22/2024 14:22:10 celecoxib 200 mg capsule 2023 024 [facility]acy #2071, [address] [place], [address], 05/19/2023 15:11:53 dextroamp hetamine- amphetami ne 20 mg tablet 2023 024 [facility] 08 [facility]/Pharmacy #2071, [address] [place], [address], 02/04/2025 08:00:32 Medrol (Cj) 4 mg tablets in a dose pack 2023 024 [facility]/Pharmacy #9703, [address] [facility], [place], [address], 04/01/2024 11:11:11 Patient TargetsNo targets recorded. Patient Instructions Encounter Date Encounter Id Patient Instructions Last Modified By Organization Details Last Modified Time 05/19/2023 [id number] gastroesophageal reflux disease (GERD): care instructions Not available 05/19/2023 15:11:50 iron deficiency anemia: care instructions Not available 05/19/2023 15:09:00 07/22/2024 [id number] gastroesophageal reflux disease (GERD): care instructions Not available 07/22/2024 15:00:02 advance care planning: care instructions Not available 07/22/2024 15:00:02 iron deficiency anemia: care instructions Not available 07/22/2024 15:00:02 attention defici t hyperactivity disorder (ADHD) in adults: care instructions Not available 07/22/2024 15:00:02 Discussed and explained advance directives such as standard forms to the patient. Face to face discussion lasted for a duration of _45__ minutes. Not available 07/22/2024 15:00:13 12/25/2024 [id number] neck pain: care instructions Not available 12/25/2024 14:01:47 jock itch: care instructions Not available 12/25/2024 14:01:47 Reason for Referral None Reported. Results Created Date Observation Date Name Description Value Unit Range Abnormal Flag Note LastModifiedBy Organization Detail LastModifiedTime 06/07/1906/07/2023 bone densi ty No observ ation record ed. [facility] [address] [place], [address], 03/04/2024 14:53:55 07/31/19 24 07/05/2023 MAMMO , scree svetlana, digit al, bilat eral No observ ation record ed. [email or web address] [facility] [address] [place], [address], 03/04/2024 14:53:55 03/05/2003/04/2024 XR, chest , 2 view No observ ation record ed. [email or web address] [facility] (Medical Records) [address] [facility] [place], [address], 03/05/2024 11:22:43 09/06/1907/31/2024 emil r monit or No observ ation record ed. [email or web address] [facility] (Medical Records) [address] [place], [address], 09/09/2024 09:12:04 12/26/1912/25/2024 XR, cervi pushpa spine , 2 or 3 view No observ ation record ed. [facility] (Medical Records) [address] [facility] [place], [address], 12/30/2024 21:52:53 Result Notes None recorded. Problems Name Problem SNOMED Code Status Onset Date Resolution Date Notes Provider Name and Address Organization Details Recorded Time Allergic rhinitis 33855922 Active 2017 Not Available [facility] 3 09:40:27 Attentio n deficit hyperact ivity disorder 931822723 Active 2017 Not Available [facility] 3 09:40:27 Viral pericard itis 69490161 Active 2017 Not Available [facility] 3 09:40:27 Rectal pain 36622294 Active 2017 proctalg ia fugax Not Available [facility] 3 09:40:27 Exercise -induced asthma 32009017 Active 2019 Not Available [facility] 3 09:40:27 Unintent ional weight loss 700384986 Active 2021 Not Available [facility] 3 09:40:27 Anemia 359464666 Completed 202107/22/2024 [place], [address], [facility] 5 14:57:25 Gastroes ophageal reflux disease 016769378 Active 2021 Not Available [facility] 3 09:40:27 Iron deficien cy anemia 17634729 Active 2021 Not Available [facility] 3 09:40:27 Acute bronchit is 41174594 Completed 202107/22/2024 Toi Nagel, DO [address] [place], [address], [facility] 5 14:57:11 Costal chondrit is 26892258 Active 2021 Not Available [facility] 3 09:40:27 Rib pain 796338080 Active 2021 Not Available [facility] 3 09:40:27 Atypical chest pain 533731535 Active 2021 Not Available [facility] 3 09:40:26 Dysuria 71489617 Active 2021 Not Available [facility] 3 09:40:27 Gout 22888443 Active 2021 Not Available [facility] 3 09:40:27 Dyspnea 810267933 Active 2021 Not Available [facility] 3 09:40:27 Chronic duodenit is 275121701 Active 2022 Not Available [facility] 3 09:40:27 Chronic esophagi tis 632006764 Active 2022 Not Available [facility] 3 09:40:27 Eczema 40732453 Active 2022 Not Available [facility] 3 09:40:27 Eczema of external auditory canal 55213664 Active 2022 Not Available [facility] 3 09:40:27 Pain of right knee joint 1555180327 61635 Active 2022 Not Available [facility] 3 09:40:27 Bacteria l conjunct ivitis 328230422 Active 2022 Not Available [facility] 3 09:40:27 Acute bacteria l sinusiti s 54687704 Completed 202207/22/2024 Removal Reason: resolv Toi Nagel, DO [address] [place] [address], [address], [facility] 5 14:57:03 Impetigo 18970171 Active 2022 Not Available [facility] 3 09:40:27 Expirato ry wheezing 4564484 Completed 202207/22/2024 Toi Nagel, DO [address] [place] [address], [address], [facility] 5 14:57:56 COVID-19 065065229 Active 2023 Toi Nagel DO [address] [place] [address], [address], [facility] 4 13:30:26 Trochant darleen bursitis of right hip 9068345555 83908 Active 2023 Toi Nagel DO [address] [place] [address], [address], [facility] 4 15:09:54 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 1688947741 Active 2023 Toi Nagel DO [address] [place] [address], [address], [facility] 4 15:10:46 Postmeno pausal osteopor osis 956315132 Active 2023 Toi Nagel DO [address] [place] [address], [address], [facility] 4 09:33:20 Intermit tent palpitat ions 006420251 Active 2023 Toi Nagel DO [address] [place] [address], [address], [facility] 4 16:21:00 Wheezing 95976889 Active 2023 MALLY CONNORS [address] [place] [address], [address], [facility] 4 11:10:48 Cough 26058595 Active 2023 MALLY CONNORS [address] [place] [address], [address], [facility] 4 11:19:30 Vulval cellulit is 252974197 Active 2024 Toi Nagel DO [address] [place] [address], [address], [facility] 5 15:01:30 Neck pain 38885029 Active 2024 Toi Nagel DO [address] [place] [address], [address], [facility] 5 13:55:48 Weakness of left upper limb Active 2024 Toi Nagel DO [address] [place] [address], [address], [facility] 5 13:57:09 Tinea cruris 057079802 Active 2024 Toi Nagel DO [address] [place] [address], [address], [facility] 5 13:59:34 Problem Notes None recorded. Procedures Surgical History Date Name Laterality Status Provider Name and Address Organization Details Recorded Time 09/12/19 21 Suture/Staple removal completed MALLY CONNORS [address] [place] [address], [address], [facility] 09/11/2020 11:05:02 06/01/19 18 Colonoscopy completed Ashlee Gates [facility] 04/23/2019 08:41:21 Imaging Results None recorded. Procedure Notes None recorded. Medical Equipment None Reported. Allergies Allergen ID Allergen Name Allergen Category Reaction Reaction Severity Criticality Documentation Date Start Date Code Code System Note Provider Name and Address Organization Details Recorded Time 2374 Substance with sulfonami de structure and antibacte rial mechanism of action (substanc e) medicatio n Not available Not available Not available 01/10/2018 06515 8003 SNOMED Therese Lilian elvira [facility] 8 15:34:34 2375 azithromy ze medicatio n Not available Not available Not available 01/10/2018 07503 RxNorm Toi Nagel, DO [address] [place], [address], [facility] 1 11:51:13 7789 amoxicill in medicatio n Not available Not available Not available 05/19/2023 723 RxNorm Marilyn Arnoldopadmaja felix [facility] 4 14:36:38 Medications Name Sig Start Date Stop Date Status Note LastModified by Organization Details LastModified Time Prescriptio n - Renewal 04/23 completed Not Available Not Available Not Available celecoxib 200 mg capsule TAKE 1 CAPSULE BY MOUTH EVERY DAY active Not Available Not Available No t Available amoxicillin 500 mg capsule 04/23 completed Not Available Not Available Not Available prednisone 10 mg tablet 50 mg x 2 days40 mg x 2 days30 mg x 2 days 20 mg x 2 days 10 mg x 2 days 07/22 completed Not Available Not Available Not Available doxycycline hyclate 100 mg capsule TAKE 1 CAPSULE BY MOUTH TWICE A DAY FOR 10 DAYS AFTER MEALS 12/25 completed Not Available Not Available Not Available triamcinolo ne acetonide 0.5 % topical cream [...] completed Not Available Not Available Not Available clotrimazol e-betametha sone 1 %-0.05 % topical cream APPLY 1 APPLICATI ON TOPICALLY TWICE A DAY FOR 14 DAYS active Not Available Not Available No t Available dextroamphe tamine-amph etamine 20 mg tablet [...] 1 tablet every day by oral route. 12/25 completed Not Available Not Available Not Available Vitamin D3 8000 IU daily active [...] Available Not Available Not Available Afluria Qd 2019-20 (36 mos up)(PF)60 mcg (15 mcg x4)/0.5 [...] (BMI) Body weight Heart rate Oxygen saturation Systolic And Diastolic Provider Name and Address Organization Details Last Updated DateTime 4 158.75 cm 21.2 kg/m2 19457.9 g 60 /min 98 % 118/68 mm[Hg] Marilyn Arnoldo [facility] 4 14:38:09 Date Recorded Body height Body mass index (BMI) Body weight Heart rate Oxygen saturation Systolic And Diastolic Provider Name and Address Organization Details Last Updated DateTime 5 157.48 cm 22.1 kg/m2 38455.6 8 g 78 /min 98 % 132/78 mm[Hg] Toi Nagel, DO [address] [place], [address] [place] [address] Internal [facility] 5 14:20:34 Date Recorded Body height Body mass index (BMI) Body weight Oxygen saturation Heart rate Systolic And Diastolic Provider Name and Address Organization Details Last Updated DateTime 5 157.48 cm 22 kg/m2 46853.5 2 g 97 % 69 /min 110/66 mm[Hg] EARL MORENO [facility] 5 13:41:57 Social History Question Answer Notes LastModified by Zidisha Details LastModified Time Tobacco Smoking Status Never Smoker Not Available [facility] 02/11/2020 03:36:24 What Is Your Level Of Caffeine Consumption? Occasional TEA/COFFEE [id number] Information not available 02/11/2020 What Was The Date Of Your Most Recent Tobacco Screening? 12/25/2024 [email or web address] Information not available 12/25/2024 Sex: Unknown Functional Status Question Answer Note LastModified by Zidisha Details LastModified Time Do you or have you ever used any other forms of tobacco or nicotine? No [email or web address] Information not available 05/19/2023 What is your level of alcohol consumption? Occasional [id number] Information not available 02/11/2020 What is your exercise level? None [id number] Information not available 02/11/2020 Mental Status None recorded. Family History Nothing Reported. Medical History Condition Response Coronary Artery Disease N Other N Gout N Blood Diseases N Kidney Stones N Blood Transfusion N Breast Cancer N COPD N Depression N Lung Disease N Defects or Inherited Disease N Anxiety Disorder N Muscle, Joint, or Bone Problems N Obesity N Vision or Eye Problems N Arthritis N Polyps N Infertility N Mental Disorder N Cancer N Varicosities N Stroke N Endometriosis N Bladder or Kidney Problems N High Cholesterol N Liver Disease N Fibromyalgia N Headaches N Kidney Disease N Allergies/Hayfever N Heart Problems N Hospitalizations N Thyroid Problems N GI Problems N Skin Problems N Eating Disorder N Anemia N MRSA exposure N Constipation N Mental Illness N Ovarian Cancer N Diabetes N Seizures/Epilepsy N Tuberculosis N Congestive Heart Failure (CHF) N Eczema N Diverticulitis N Abuse/Domestic Violence N Asthma N Reflux/GERD N Hepatitis N Heart Disease N Pulmonary Embolism N Hypertension N Osteoporosis N Chicken Pox N Autism Spectrum Disorder (ASD) N Gynecological HistoryNo gynecological history recorded. Obstetrics History GPAL:G 0 P 0 0 0 0 Immunizations Vaccine Type Date Status Note Provider Nam e and Address Organization Details Recorded Time influenza, unspecified formulation 2 completed Tori felix [facility] 05/19/2023 14:31:06 [facility] 10:18:56 COVID-19 mRNA, bivalent, original/Omicron BA.1, Non-US Vaccine (Spikevax Bivalent), Moderna 3 completed Tori felix [facility] 05/19/2023 14:31:06 pneumococcal polysaccharide PPV23 0 completed Tori felix [facility] 05/19/2023 14:31:06 Influenza, split virus, quadrivalent, preservative 1 completed Tori felix [facility] 05/19/2023 14:31:06 zoster recombinant 0 completed Tori felix [facility] 05/19/2023 14:31:06 zoster recombinant 0 completed Tori felix [facility] 05/19/2023 14:31:06 Influenza, split virus, quadrivalent, preservative 0 completed Tori felix, [facility] 05/19/2023 14:31:06 COVID-19 vaccine, vector-nr, rS-ChAdOx1, PF, 0.5 mL 1 completed Tori felix, [facility] 05/19/2023 14:31:06 COVID-19 vaccine, vector-nr, rS-ChAdOx1, PF, 0.5 mL 1 completed Tori felix, [facility] 05/19/2023 14:31:06 Past Encounters Encounter ID Performer Location Encounter Start Date Encounter Closed Date Diagnosis/Indication Diagnosis SNOMED-CT Code Diagnosis ICD10 Code Diagnosis IMO Codes Diagnosis Note [id number] Toi Nagel [facility] [address] [place] [address], [place] [address] 01/12/2018 14:15:55 01/12/2018 15:11:03 Asthma 724904833 J45.909 Acute bronchitis 6361726 2 J20.9 Pneumonia 189238955 J18. 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 F90.0 Attention deficit hyperactivity disorder 186347353 F90.9 [id number] Toi Nagel [facility] [address], [place] [address] 04/23/2019 11:18:41 04/23/2019 12:05:42 Adult health examination 518890775 Z00.00 Hepatitis C screening 41 6574879 Z11.59 Screening mammography 24 118064 Z12.31 Osteoporosis 09895336 M8 1.0 would like to set her up Attention deficit hyperactivity disorder 557447676 F90.9 [id number] Toi Nagel [facility] [address] [facility], [place] [address] 06/26/2019 11:10:13 06/26/2019 11:58:27 Dyspnea 256357187 R06.00 pt was moving pallets this morning, [...] to use at home Exercise-i nduced asthma 90683964 J45.990 pt has exercise -induced asthma this episode was most likely induced by combinatio n of seasonal allergies and heavy lifting/ex ertion will give an inhaler to use at home instructed pt to call us if symptoms persist even with inhaler instructed pt to go to ER if she is worsening and struggling to breathe pt understand s this [id number] Toi Nagel DO [facility] [address] [facility], [place] [address] 12/25/2019 16:00:01 12/25/2019 16:36:39 Costal chondritis 06288052 M94.0 will tx with diclofenac 50 and will have her try this for 10-14 days [id number] Toi Nagel DO [facility] [address] [facility], [place] [address] 06/12/2020 11:44:35 06/12/2020 12:26:53 Adult health examination 448242663 Z00.00 doing well with everything except has some early changes of venous stasis Screening for cardiovascular system disease 543301460 Z13.6 will need lab Screening for malignant neoplasm of colon 945025031 Z12.11 will refer for eval Screening for osteoporosis 149868579 Z13.820 will need follow up Screening mammography 24 443702 Z12.31 will nee\d this ordered Asthma 531541493 J45.90 9 seems to be doing ok pFT is good [id number] Toi Nagel DO [facility] [address] [facility], [place] [address] 09/11/2020 10:34:40 09/11/2020 13:40:13 Removal of chase 34875080 Z48.02 stable Fracture o f scaphoid bone 65761727 S62.001D stable [id number] Toi Nagel DO [facility] [address] [facility], [place] [address] 09/15/2020 14:06:31 09/15/2020 15:15:09 Ataxia 59710711 R27.0 has been falling so we will need to have her get eval had injured head last week Recurrent falls 49399722 2 R29.6 as noted needs eval of her gait and stability propricept ion etc consider MRI if above unhelpful Injury of head 59272723 S09.90XA [id number] Toi Nagel [facility] [address] [facility], [place] [address] 10/16/2020 14:01:41 10/16/2020 14:44:23 Bilateral vestibular neuronitis of inner ears 7494296009 145679 H81.23 will need to have pt sent [...] scalp laceration and broken arm . . [id number] Toi Nagel [facility] [address] [facility], [place] [address] 09/27/2021 11:55:30 10/01/2021 08:10:58 Unintentional weight loss 173778569 R63.4 Attention deficit hyperactivity disorder 000692027 F90.9 [id number] Toi Nagel [facility] [address] [facility], [place] [address] 01/14/2022 15:59:59 01/14/2022 16:35:30 Acute bronchitis 93057405 J20.8 will start on short taper of prednisone and z-cj for 5 days Costal chondritis 907154 04 M94.0 will refill on diclofenac [id number] Toi Nagel [facility] [address] [facility], [place] [address] 01/18/2022 14:54:39 01/18/2022 16:32:56 Rib pain 958683023 R07.81 will fu with XR ribs, bilateral Atypical chest pain 1025 60330 R07.89 will fu with echo, fu with XR bilateralw ill fu with EKG Dysuria 66005645 R30.0 will fu with urine sample [id number] Toi Nagel [facility] [address] [facility],[place] [address] 04/12/2022 09:59:17 04/12/2022 13:35:46 Active or passive immunization 648700854 Z23 utd Adult heal th examination 220801489 Z00.00 doing well with everything except has some early changes of venous stasis Exercise-i nduced asthma 76488353 J45.990 will look into med other than inhaler with albuterol Chronic duodenitis 51592 3007 K29.80 will stay on the omeprazole for now bu t we need to know the results of gastric bx did they bx for h pylori??? Eczema of external auditory canal 25066846 H60.549 [id number] Toi Nagel [facility] [address] [place] [address] 05/31/2022 14:41:18 05/31/2022 16:14:19 Attention deficit hyperactivity disorder 912631197 F90.9 stable on current meds no major prob Gastroesop hageal reflux disease 279614069 K21.01 seems more stable with omeprazole will cont for 2 months then go to 3x/week Pain of ri ght knee joint 4315433734 18932 M25.561 [id number] Toi Nagel [facility] [address] [place] [address] 09/26/2022 09:52:01 09/26/2022 11:00:21 Bacterial conjunctivitis 770306182 H10.012 start on regimine below Acute bact erial sinusitis 66735986 J01.11 start on amox-clav for the next seven days Impetigo 78975136 L01.09 has neosporin/ bacitracin at home she is going to use Expiratory wheezing 9763 007 R06.2 start prednisone Acute bronchitis 2291059 2 J20.8 short taper of pred and amox/clav Anemia 961846224 D50.0 will retest levels from when she returns from her trip [id number] Toi Nagel [facility] [address] [facility] [address] [address] 05/19/2023 14:30:58 05/19/2023 15:19:29 Active or passive immunization 867073067 Z23 utd Adult heal th examination [id number] Z00.00 doing well with everything except has some early changes of venous stasis Exercise-i nduced asthma 37130461 J45.990 will look into med other than inhaler with albuterol Iron defic iency anemia [id number] D50.9 neesd Trochanter ic bursitis of right hip [id number] 74530 M70.61 will try celebrex Post-acute COVID-19 1119 742162 U09.9 Gastroesop hageal reflux disease 590196626 K21.01 seems more stable with omeprazole will cont for 2 months then go to 3x/week Attention deficit hyperactivity disorder 183372669 F90.9 stable on current meds no major prob Screening for osteoporosis 062387442 Z13.820 will need follow up Osteoporosis 93909816 M8 1.0 [id number] Toi Nagel [facility] [address] [facility],[place] [address] 03/04/2024 14:20:21 03/04/2024 15:04:51 Acute bronchitis 03297512 J20.8 start medrol and z pakCXR ordered for evaluation of her lungs given exam from endo [id number] Toi Nagel [facility] [address] [facility], [place] [address] 04/01/2024 10:58:11 04/01/2024 11:26:17 Wheezing 60565919 R06.2 will restart a longer prednisone taper and have her start using the albuterol inhaler Cough 85450070 R05.2 start medication s [id number] Toi Nagel [facility] [address] [facility], [place] [address] 07/22/2024 14:11:33 07/22/2024 15:22:54 Adult health examination [id number] Z00.00 doing well with everything except has some early changes of venous stasis already had extensive lab from the endocrinol [facility] Screening for cardiovascular system disease 922439440 Z13.6 will need lab Screening for malignant neoplasm of colon 314790615 Z12.11 she is up to date Screening for osteoporosis 686781601 Z13.820 will need follow up Screening mammography 24 261036 Z12.31 she is utd Attention deficit hyperactivity disorder 935975473 F90.9 stable on current meds no major prob Gastroesop hageal reflux disease 412322997 K21.01 off the omeprzole willuse the famotidine Iron defic iency anemia 21042434 D50.9 no longer an issue Intermitte nt palpitations 706886886 R00.2 Vulval cellulitis 409042 007 N76.2 [id number] Toi Nagel DO [facility] [address] [facility],[place] [address] 12/25/2024 13:35:11 12/25/2024 16:18:03 Depression screening 491899086 Z13.31 neg Trochanter ic bursitis of right hip [id number] 34900 M70.61 will try celebrex Neck pain 65614985 M54.2 753358 Weakness o f left upper limb [id number] 97549 R29.898 774379 Tinea cruris 454983607 B 35.6 41916 Health Concerns Section Related Observation LastModified by Organization Detai ls LastModified Time None Recorded Concern Status LastModified by Organization Details LastModified Time None Recorded Advance Directives Directive None Recorded Payers Insurance Date Sequence Insurance Name Policy Number Policy Vick Covered Member ID Vick Member ID Guarantor Name 12/24/2024 2 [place] [id number] Jyoti Wells [id number] Jyoti Longoria 07/22/2024 2 [place] [id number] Jyoti Wells [id number] Jyoti Longoria 12/24/2024 1 [place] xiao qu wu you [employer] Jyoti Longoria [id number] Jyoti Longoria 07/22/[address] [place] [address] [id number] Jyoti Longoria [id number] Jyoti Longoria Notes Date Note Type Note Provider Name and Address Organization Details Recorded Time 05/19/19 24 text/htm l Annual WellnessReported by PatientSocial/Behavioral HistoryFor diet and nutrition, patient reportshealthy diet. For fracture risk, patient reportsno history of fractures,no recent explained fracture,no sudden unexplained fractures, andno previous musculoskeletal injuries. For physical activity, patient reportsexercises on a regular basis,recent increase in physical activity, andgood physical condition. For additional lifestyle factors, patient reportsno tobacco use,no alcohol intake, andstopped drinking alcohol.Mental Status:For depression risk, patient reportsnever feels sad, empty, or tearful,no loss of interest in activities,no significant changes in weight,no sleep disturbances or insomnia,no agitation,no loss of energy,no feelings of worthlessness or guilt,no thoughts of suicide,no history of depression, andno history of mood disorders.Functional AbilityFor hearing, patient reportsno loss of hearing. For vision, patient reportsno vision problems.just getting over covidROS as noted in the HPI Toi Nagel DO [address] [place] [address], [phone], [facility] 05/19/2023 15:17:06 03/04/20 24 text/htm l ROS as noted in the HPI c/o URI symptoms The patient is participating in this appointment via telemedicine communication with a phone call/video calling service (Doxy)The patient consents to use of these platforms in place of an in-person appointment due to either sick symptoms the patient is presenting with or current office closure due to COVID exposure in order to keep our office staff and patients safe the patient saw her distance education teacher today, noted wheezing throughout the lungsthe patient reports she has been traveling frequently this past few weeksthe patient reports that she notes that she got sick after her most recent trip the patient is wheezing, coughing (productive, yellow and white mucus), trouble sleeping, fatigue, body acheshas to fu with blood work for endocrine start on laura perez and MALLY Pena [address] [place], [phone], [facility] 03/04/2024 14:54:43 04/01/20 text/htm l ROS as noted in the HPI c/o continued symptoms the patient reports that [...] no chills, no sob MALLY CONNORS [address] [facility], [place], [address], [facility] 04/01/2024 11:25:33 07/23/19 text/htm l AnemiaReported by PatientHPIFor timing, patient reportsbetter. For associated symptoms, patient reportsno shortness of breath,no chest pain,no abdominal pain,no nausea,no vomiting,no melena,no blood in stool,no weakness,no fatigue,no palpitations,no excessive sweating,normal nails,tolerant of cold,no nonfood cravings,no behavior problems,no symptoms of peripheral neuropathy,normal balance,no jaundice,no pallor, andno weight loss. ADHDReported by PatientHPIFor school performance, patient reportsno issueandchild is learning. For school support, patient reportswell supportedandteachers are very involved. For organization, patient reportsgood organization. For appetite, patient reportsnormal appetiteandno binge eating. For mood, patient reportsstable. For sleep, patient reportsgoodandadequate sleep, not tired at school. For friends, patient reportswell connected with peers. For family, patient reportsno new stressors. For attention, patient reportsable to focus. For hyperactivity, patient reportsis not hyperactiveanddoes not fidget/squirm. For impulsivity, patient reportsis not impulsive. For tasking, patient reportsable to initiate tasks,able to complete tasks,able to move on to the next task, andmulti-tasking. For medication side effects, patient reportsno fainting,no dizziness,no chest pain,no shortness of breath,no seizures,no change in exercise tolerance,no headaches, andno tics. Medicare Annual Wellness VisitReported by PatientSocial/Behavioral HistoryFor diet and nutrition, patient reportshealthy diet. For fracture risk, patient reportsno history of fractures,no recent explained fracture,no sudden unexplained fractures, andno previous musculoskeletal injuries. For physical activity, patient reportsexercises on a regular basis,recent increase in physical activity, andgood physical condition.Mental Status:For depression risk, patient reportsnever feels sad, empty, or tearful,no loss of interest in activities,no significant changes in weight,no sleep disturbances or insomnia,no agitation,no loss of energy,no feelings of worthlessness or guilt,no thoughts of suicide,no history of depression, andno history of mood disorders. For orientation, patient reportsno disorientation to time,no disorientation to date, andno disorientation to place. For concentration and memory, patient reportsno decreased concentrating ability,no memory lapses or loss, anddoes not forget words. For speech/motor difficulties, patient reportsno speech difficulties,no difficulty expressing formulated concepts,no difficulty with fine manipulative tasks,no difficulty writing/copying,no slowed reaction time, anddoes not knock things over when trying to pick them up.Functional AbilityFor hearing, patient reportsno loss of hearing. For vision, patient reportsno vision problems. For activities of daily living, patient reportsable to bathe with limited or no assistance,able to contol urination and bowels,able to dress with limited or no assistance,able to feed self with limited or no assistance,able to get out of chair or bed with limited or no assistance,able to groom with limited or no assistance, andable to toilet with limited or no assistance. For instrumental activities of daily living, patient reportsable to do house work with limited or no assistance,able to grocery shop with limited or no assistance,able to manage medications with limited or no assistance,able to manage money with limited or no assistance,able to prepare meals with limited or no assistance, andable to use the phone with limited or no assistance. For falls risk assessment, patient reportsno frequent falls while walking,no fall in the past year,no fall since last visit, andno dizziness/vertigo. For home safety, patient reportsno unsafe perico hazzards,no unsafe stairs,no unsafe gas appliances,working smoke/co detectors,wears protective head gear for biking/high velocity,use of seatbelts,practicing 'safer sex',no vision or hearing loss while driving,no fire arms,has hand bars in the bathroom/shower, andgood lighting in the home. here for rechk and is doing ok no major issuesexcept for a recent irritation in the groinotherwise is having an occ episode of a heavy beating sensation in her heart Toi Nagel DO [address] [place] [address], [phone], [facility] 07/22/2024 15:03:16 12/26/19 25 text/htm l ROS as noted in the HPI injured her cervical neck relates that she has had some discomfort to the low base of the neck Toi Nagel DO [address] [place] [address], [phone], [facility] 12/25/2024 14:04:55 OBGyn Episode No OBEpisode recorded.
--- OUTSIDE RECORDS SUMMARY | 2025-03-15 11:28 | XMS_ITS | Clinical Summary ---
Author Organization [facility] Address [address] [place] [address] Phone Care Team Providers Care Boom Crane Operator Name Role Phone NamitakayleeYoel DO Unavailable Yoel Nagel DO Primary Care Provider [phone] Allergies Active Allergy Reactions Criticality Noted Date Comments Erythromycin Unknown 08/23/2013 Sulfa (Sulfonamide Antibiotics) Unknown 08/08 Medications dextroamphetamine- amphetamine (ADDERALL) 15 mg Tab tablet 15 mg. Active albuterol 90 mcg/actuation inhaler 2 puffs as needed 07/06/19 11 Active multivitamin-quartz miner als-lutein (MULTIVITAMIN 50 PLUS) Tab daily. Active [...] 9:30 AM EDT Office Visit [facility] [address] [place] [address] [phone] Wilian Medrano DO [address] [place] [phone] [email or web address] Health Maintenance Due Date Last Done Comments [...] this topic Medical Devices Implanted Type Area Diamond Sizer Device Identifier Shelf Expiration Date Model / [...] EDT) Immuno Fecal Occult Positive(A ) Negative [facility] Stool (Stool) 01/20/2022 5:2 3 PM EDT 01/20/2022 5:27 PM EDT Jossie Magallanes NP LAB BODY FLUIDS AND STOOL ORDERABLES Final Result Performing Organization Address City/State/[facility] Co de Phone Number [address] [address] * ENDOSCOPY, COLON (06/01/2017 9:44 [...] 62 Admit Type: Outpatient Gender: Female Room: [place] [address] Referring MD: YOEL NAGEL DO Exam Type: [...] polyps K64.8, Other hemorrhoids CPT copyright 2016 [employer] [place] [employer] [employer]. All rights reserved. The codes documented in this report are preliminary and upon improvement engineer reviewmay be revised to meet current compliance requirements. [address] [place] [address] [place] Yoel Nagel DO GI PROCEDURE ORDERABLES Edited R esult - Final from Last 3 Months or Most Recently Relevant to Health Maintenance Insurance MEDICARE PART A & B [employer] MEDEX SUPPLEMENT MEDICARE PART A & B [employer] MEDEX SUPPLEMENT MEDICARE PART A & B [employer]plex MEDEX SUPPLEMENT MEDICARE PART A & B [employer]plex MEDEX SUPPLEMENT MEDICARE PART A & B [employer] MEDEX SUPPLEMENT MEDICARE PART A & B [employer] MEDEX SUPPLEMENT MEDICARE PART A & B [employer] MEDEX SUPPLEMENT MEDICARE PART A & B Polyplex MEDEX SUPPLEMENT MEDICARE PART A & B [facility] MEDEX SUPPLEMENT Care Teams Boom Crane Operator Relationship Specialty Start Date End Date Yoel Nagel DO [address] [place] [phone] PCP - General Internal Medicine 06/15/24 Yoel Nagel DO Historical LMR Provider 01/28/17 Additional Source Comments The information contained in this document represents components of the legal health record. It is not the complete legal health record.[facility]
--- OUTSIDE RECORDS SUMMARY | 2025-03-15 11:28 | XMS_ITS | Continuity of Care Document ---
Author Organization [facility], [facility] Address [address] [place] [address] [place] [address] Assessment Encounter Date Assessment Date Assessment LastModified by Organization Details LastModified Time 12/25/2024 12/25/2024 [id number] [place] [address] (MECHANICAL CAD DRAFTER) MDM MODERATE MUST MEET 2 OUT OF [...] Not available Not available Not available Lab None recorded. Referral None recorded. Procedures None recorded. Surgeries None recorded. Imaging XR, cervical spine, 2 or 3 view 2024 025 [email or web address] [facility] (Imaging), [address] [place] [address], [address], 12/25/2024 16:30:34 MRI, cervical spine, w/o contrast 2024 025 [facility] (Imaging), [address] [place], [address], 01/22/2025 11:03:28 Medication Orders celecoxib 200 mg capsule 2024 025 [facility]/Ph[facility]acy #[id number], [address] [place], [address], 12/25/2024 14:02:07 clotrimaz ole-betam ethasone 1 %-0.05 % topical cream 2024 025 [id number] [address] [place], [address], 12/25/2024 14:02:04 Patient TargetsNo targets recorded. Patient Instructions Encounter Date Encounter Id Patient Instructions Last Modified By Organization Details Last Modified Time 12/25/2024 [id number] neck pain: care instructions Not available 12/25/2024 14:01:47 jock itch: care instructions Not available 12/25/2024 14:01:47 Reason for Referral None Reported. Results Created Date Observation Date Name Description Value Unit Range Abnormal Flag Note LastModifiedBy Organization Detail LastModifiedTime 12/26/19 25 12/25/2024 XR, cervi pushpa spine , 2 or 3 view No observ ation record ed. [facility] (Medical Records) [address] [place], [address], 12/30/2024 21:52:53 Result Notes None recorded. Problems Name Problem SNOMED Code Status Onset Date Resolution Date Notes Provider Name and Address Organization Details Recorded Time Allergic rhinitis 21012474 Active 2017 Not Available [facility] 3 09:40:27 Attentio n deficit hyperact ivity disorder 266918945 Active 2017 Not Available [facility] 3 09:40:27 Viral pericard itis 85361203 Active 2017 Not Available [facility] 3 09:40:27 Rectal pain 03759591 Active 2017 proctalg ia fugax Not Available [facility] 3 09:40:27 Exercise -induced asthma 55972781 Active 2019 Not Available [facility] 3 09:40:27 Unintent ional weight loss 180942721 Active 2021 Not Available [facility] 3 09:40:27 Anemia 992447257 Completed 202107/22/2024 Toi Nagel DO [address] [place], [address], [facility] 5 14:57:25 Gastroes ophageal reflux disease 519593542 Active 2021 Not Available [facility] 3 09:40:27 Iron deficien cy anemia 33546181 Active 2021 Not Available [facility] 3 09:40:27 Acute bronchit is 94496869 Completed 202107/22/2024 Toi Nagel, [address] [place] [address], [address], [facility] 5 14:57:11 Costal chondrit is 72542154 Active 2021 Not Available [facility] 3 09:40:27 Rib pain 015963850 Active 2021 Not Available [facility] 3 09:40:27 Atypical chest pain 341775443 Active 2021 Not Available [facility] 3 09:40:26 Dysuria 16464234 Active 2021 Not Available [facility] 3 09:40:27 Gout 66990852 Active 2021 Not Available [facility] 3 09:40:27 Dyspnea 166177834 Active 2021 Not Available [facility] 3 09:40:27 Chronic duodenit is 338331832 Active 2022 Not Available [facility] 3 09:40:27 Chronic esophagi tis 029454972 Active 2022 Not Available [facility] 3 09:40:27 Eczema 99501523 Active 2022 Not Available [facility] 3 09:40:27 Eczema of external auditory canal 57839426 Active 2022 Not Available [facility] 3 09:40:27 Pain of right knee joint 9393696532 83877 Active 2022 Not Available [facility] 3 09:40:27 Bacteria l conjunct ivitis 810979237 Active 2022 Not Available [facility] 3 09:40:27 Acute bacteria l sinusiti s 15968923 Completed 202207/22/2024 Removal Reason: resolv Toi Nagel, [address] [place] [address], [address], [facility] 5 14:57:03 Impetigo 85670443 Active 2022 Not Available [facility] 3 09:40:27 Expirato ry wheezing 5846693 Completed 202207/22/2024 Toi Nagel DO [address] [place] [address], [address], [facility] 5 14:57:56 COVID-19 052626083 Active 2023 Toi Nagel DO [address] [place] [address], [address], [facility] 4 13:30:26 Trochant darleen bursitis of right hip 0747224867 49253 Active 2023 Toi Nagel DO [address] [place] [address], [address], [facility] 4 15:09:54 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 4079250519 Active 2023 Toi Nagel DO [address] [place] [address], [address], [facility] 4 15:10:46 Postmeno pausal osteopor osis 561219681 Active 2023 Toi Nagel DO [address] [place] [address], [address], [facility] 4 09:33:20 Intermit tent palpitat ions 501045895 Active 2023 Toi Nagel DO [address] [place] [address], [address], [facility] 4 16:21:00 Wheezing 88362411 Active 2023 MALLY CONNORS [address] [place] [address], [address], [facility] 4 11:10:48 Cough 24053801 Active 2023 MALLY CONNORS [address] [place] [address], [address], [facility] 4 11:19:30 Vulval cellulit is 906028836 Active 2024 Toi Nagel DO [address] [place] [address], [address], [facility] 5 15:01:30 Neck pain 67676538 Active 2024 Toi Nagel DO [address] [place] [address], [address], [facility] 5 13:55:48 Weakness of left upper limb Active 2024 Toi Nagel DO [address] [place] [address], [address], [facility] 5 13:57:09 Tinea cruris 419323161 Active 2024 Toi Nagel DO [address] [place] [address], [address], [facility] 5 13:59:34 Problem Notes None recorded. Procedures Surgical History Date Name Laterality Status Provider Name and Address Organization Details Recorded Time 09/12/19 21 Suture/Staple removal completed MALLY CONNORS [address] [place], [address], [facility] 09/11/2020 11:05:02 06/01/19 18 Colonoscopy completed Ashlee Gates [facility] 04/23/2019 08:41:21 Imaging Results None recorded. Procedure [...] Not available Not available Not available 01/10/2018 63374 8003 [facility] 15:34:34 2375 azithromy ze medicatio n Not available Not available Not available 01/10/2018 81488 RxNorm Toi Nagel DO [address] [place], [address], [facility] 1 11:51:13 7789 amoxicill in medicatio n Not available Not available Not available 05/19/2023 723 Rx[facility] 4 14:36:38 Medications Name Sig Start Date [...] TO AFFECTED AREA 3 TIMES A DAY 04/14 /2025 completed Not Available Not Available Not Available [...] Updated DateTime 5 157.48 cm 22 kg/m2 13617.5 2 g 97 % 69 /min 110/66 mm[Hg] EARL Zelaya [facility] 5 13:41:57 Social History Question Answer Notes LastModified by 79 Group Details LastModified Time Tobacco Smoking Status Never Smoker Not Available [facility] 02/11/2020 03:36:24 What Is Your Level Of Caffeine Consumption? Occasional TEA/COFFEE [id number] Information not available 02/11/2020 What Was The Date Of Your Most Recent Tobacco Screening? 12/25/2024 [email or web address] Information not available 12/25/2024 Sex: Unknown Functional Status Question Answer Note LastModified by Organizat ion Details LastModified Time Do you or have you ever used any other forms of tobacco or nicotine? No [email or web address] Information not available 05/19/2023 What is your level of alcohol consumption? Occasional [id number] Information not available 02/11/2020 What is your exercise level? None [id number] Information not available 02/11/2020 Mental Status None recorded. Family History Nothing Reported. Medical History Condition Response Coronary Artery Disease N Gout N Other N Kidney Stones N Blood Diseases N Blood Transfusion N Breast Cancer N Lung Disease N Depression N COPD [...] Time influenza, unspecified formulation 2 [facility]2023 14:31:06 Tdap 3 [facility] 08/12/2022 10:18:56 COVID-19 mRNA, bivalent, original/Omicron BA.1, Non-US Vaccine (Spikevax Bivalent), Moderna 3 [facility] 05/[facility]2023 14:31:06 pneumococcal polysaccharide PPV23 0 [facility] 05/19/2023 14:31:06 Influenza, split virus, quadrivalent, preservative 1 completed [facility] 05/19/2023 14:31:06 zoster recombinant 0 [facility] 05/[facility]/2023 14:31:06 zoster recombinant 0 completed [facility] 05/19/2023 14:31:06 Influenza, split virus, quadrivalent, preservative 0 [facility] 05/[facility]/2023 14:31:06 COVID-19 vaccine, vector-nr, rS-ChAdOx1, PF, 0.5 mL 1 completed Tori felix, [facility] 05/19/2023 14:31:06 COVID-19 vaccine, vector-nr, rS-ChAdOx1, PF, 0.5 mL 1 completed Tori Medina null, [facility] 05/19/2023 14:31:06 Past Encounters Encounter ID Performer Location Encounter Start Date Encounter Closed Date Diagnosis/Indication Diagnosis SNOMED-CT Code Diagnosis ICD10 Code Diagnosis IMO Codes Diagnosis Note [id number] Toi Nagel DO [facility] [address],[place] [address] 12/25/2024 13:35:11 12/25/2024 16:18:03 Depression screening 883766386 Z13.31 neg Trochanter ic bursitis of right hip 6111325663 55972 M70.61 will try celebrex Neck pain 83121422 M54.2 214449 Weakness o f left upper limb 9764479939 35447 R29.898 157393 Tinea cruris 222003001 B 35.6 95170 Health Concerns Section Related Observation LastModified by Organization Detai ls LastModified Time None Recorded Concern Status LastModified by Organization Details LastModified Time None Recorded Payers Encounter Date Sequence Insurance Name Policy Number Policy Vick Covered Member ID Vick Member ID Guarantor Name 12/25/2024 2 [place] [id number] Jyoti Wells [id number] Jyoti Longoria 12/25/2024 1 [place] [employer] Jyoti Longoria [id number] Jyoti Longoria Notes Date Note Type Note Provider Name a md Address Organization Details Recorded Time 12/25/2024 text/html ROS as noted in the HPI injured her cervical neck relates that she has had some discomfort to the low base of the neck Toi Nagel DO [address] [place], [address], [facility] 12/25/2024 14:04:55 OBGyn Episode No OBEpisode recorded.
--- OUTSIDE RECORDS SUMMARY | 2025-03-15 11:29 | XMS_ITS | Encounter Summary ---
Author Organization [facility] Address [address] [place] [address] Phone Care Team Providers Care Stave Inspector Name Role Phone Toi Son DO Unavailable Bigda, Toi A DO Primary Care Provider [phone] Bigda, Toi A DO Primary Care Provider [phone] Reason for Visit * Reason Comments Medication Refill Encounter Details Date Type Department Care Team (Late st Contact Info) Description 05/24/2023 Refill [facility] at [address] [address] Tamica Marin, KULDIP [address] [place] [address] Medication Refill Social History Tobacco Use Types [...] 9:30 AM EDT Office Visit [facility] [address] [place] [address] Wilian Medrano DO [address] [place] [address] documented as of this encounter Visit Diagnoses Not on filedocumented in this encounter Care Teams Stave Inspector Relationship Specialty Start Date End Date Toi Son DO [email or web address] PCP - General 04/13/17 06/14/24 Toi Son DO [address] [place] [address] [email or web address] PCP - General Internal Medicine 06/15/24 Toi Son DO [email or web address] Historical LMR Provider 01/28/17 documented as of this encounter Additional Source Comments The information contained in this document represents components of the legal health record. It is not the complete legal health record.[facility]
--- OUTSIDE RECORDS SUMMARY | 2025-03-15 11:29 | XMS_ITS | Encounter Summary ---
Author Organization [facility] Address [address] [place] [address] Phone Care Team Providers Care Veneer Taping Machine Offbearer Name Role Phone Toi Son DO Unavailable Cami Rose CARDIOVASCULAR TECHNOLOGIST Unavailable [phone] Virgen Perez CARDIOVASCULAR TECHNOLOGIST Unavailable [phone] Tori Dawkins MD Unavailable Ciro Em MD Unavailable Sara Oropeza DO Unavailable Dominique Damon MD Unavailable [phone] Alyssa Pham MD Unavailable [phone] Va Dominguez CARDIOVASCULAR TECHNOLOGIST Unavailable Toi Son DO Primary Care Provider [phone] Toi Son DO Primary Care Provider [phone] Encounter Details Date Type Department Care Team (Late st Contact Info) Description 06/01/2020 Transcribe Orders [facility] [address] [place] [address] Toi Son DO [address] [place] [address] Social History Tobacco Use Types Packs/Day Years [...] 9:30 AM EDT Office Visit [facility] [address] [place] [address] Wilian Medrano DO [address] [place] [address] documented as of this encounter Visit Diagnoses Not on filedocumented in this encounter Care Teams Veneer Taping Machine Offbearer Relationship Specialty Start Date End Date Toi Son DO PCP - General 04/13/17 06/14/24 Toi Son DO [address] [place] [address] PCP - General Internal Medicine 06/15/24 Toi Son DO [email or web address] Historical LMR Provider 01/28/17 Cami Rose, CARDIOVASCULAR TECHNOLOGIST [address] [place] [address] [email or web address] Historical LMR Provider 01/28/17 04/17/21 Virgen Perez NP [address] [place] [address] [email or web address] Historical LMR Provider 01/28/17 2 Tori Dawkins MD [address] [place] [address], [address] [place] [address] [email or web address] Historical LMR Provider 01/28/17 Ciro Em MD [address] [place] [address] [email or web address] Historical LMR Provider 01/28/17 04/17/21 Sara Oropeza DO [address] [place] [address] Historical LMR Provider 01/28/17 2 Dominique Damon MD [address] [place] [address] Historical LMR Provider 01/28/17 2 Alyssa Pham MD [address] [place] [address] Historical LMR Provider 01/28/17 2 Va Dominguez NP [address] [place] [address] Historical LMR Provider 01/28/17 2 documented as of this encounter Additional Source Comments The information contained in this document represents components of the legal health record. It is not the complete legal health record.[facility]
--- OUTSIDE RECORDS SUMMARY | 2025-03-15 11:29 | XMS_ITS | Encounter Summary ---
Author Organization [facility] Address [address] [place] [address] Phone Care Team Providers Care Shoe Folder Name Role Phone Toi Son DO Unavailable Cami Rose PURCHASE ORDER CHECKER Unavailable [phone] Virgen Perez PURCHASE ORDER CHECKER Unavailable [phone] Tori Dawkins MD Unavailable Ciro Em MD Unavailable Sara Oropeza DO Unavailable Dominique Damon MD Unavailable [phone] Alyssa Pham MD Unavailable [phone] Va Dominguez PURCHASE ORDER CHECKER Unavailable Toi Son DO Primary Care Provider [phone] Toi Son DO Primary Care Provider [phone] Encounter Details Date Type Department Care Team (Late st Contact Info) Description 2019 Procedure Pass [facility], Ct Scan - [facility] [address] [place] [address] Social History Tobacco Use Types Packs/Day Years [...] 9:30 AM EDT Office Visit [facility] [address] [place] [address] Wilian Medrano DO [address] [place] [address] documented as of this encounter Visit Diagnoses Not on filedocumented in this encounter Care Teams Shoe Folder Relationship Specialty Start Date End Date Toi Son DO PCP - General 04/13/17 06/14/24 Toi Son DO [address] [place] [address] PCP - General Internal Medicine 06/15/24 Toi Son DO Historical LMR Provider 01/28/17 Cami Rose, PURCHASE ORDER CHECKER [address] [place] [address] Historical LMR Provider 01/28/17 04/17/21 Virgen Perez NP [address] [place] [address] [email or web address] Historical LMR Provider 01/28/17 2 Tori Dawkins MD [address] [facility], 2nd [place] [address] [email or web address] Historical LMR Provider 01/28/17 Ciro Em MD [address] [place] [address] [email or web address] Historical LMR Provider 01/28/17 04/17/21 Sara Oropeza DO [address] [place] [address] Historical LMR Provider 01/28/17 2 Dominique Damon MD [address] [place] [address] Historical LMR Provider 01/28/17 2 Alyssa Pham MD [address] [place] [address] Historical LMR Provider 01/28/17 2 Va Dominguez NP [address] [place] [address] Historical LMR Provider 01/28/17 2 documented as of this encounter Additional Source Comments The information contained in this document represents components of the legal health record. It is not the complete legal health record.[facility]
--- OUTSIDE RECORDS SUMMARY | 2025-03-15 11:29 | XMS_ITS | Encounter Summary ---
Author Organization [facility] Address [address] [facility] [place] [address] Phone Care Team Providers Care Mental Health Aide Name Role Phone Toi Son DO Unavailable Cami Rose DIAMOND WHEEL EDGER Unavailable [phone] Virgen Perze DIAMOND WHEEL EDGER Unavailable [phone] Tori Dawkins MD Unavailable Ciro Em MD Unavailable Sara Oropeza DO Unavailable Dominique Damon MD Unavailable [phone] Alyssa Pham MD Unavailable [phone] Va Dominguez DIAMOND WHEEL EDGER Unavailable Toi Son DO Primary Care Provider [phone] Toi Son DO Primary Care Provider [phone] Encounter Details Date Type Department Care Team (Late st Contact Info) Description 2019 Procedure Pass [facility], Ct Scan - [facility] [address] [place] [address] Social History Tobacco Use Types Packs/Day Years [...] 9:30 AM EDT Office Visit [facility] [address] [place] [address] Wilian Medrano DO [address] [place] [address] documented as of this encounter Visit Diagnoses Not on filedocumented in this encounter Care Teams Mental Health Aide Relationship Specialty Start Date End Date Toi Son DO [email or web address] PCP - General 04/13/17 06/14/24 Toi Son DO [address] [place] [address] [email or web address] PCP - General Internal Medicine 06/15/24 Toi Son DO [email or web address] Historical LMR Provider 01/28/17 Cami Rose, DIAMOND WHEEL EDGER [address] [place] [address] Historical LMR Provider 01/28/17 04/17/21 Virgen Perez NP [address] [place] [address] [email or web address] Historical LMR Provider 01/28/17 2 Tori Dawkins MD [address] [facility], 2nd [place] [address] [email or web address] Historical LMR Provider 01/28/17 Ciro Em MD [address] [place] [address] [email or web address] Historical LMR Provider 01/28/17 04/17/21 Sara Oropeza DO [address] [place] [address] Historical LMR Provider 01/28/17 2 Dominique Damon MD [address] [place] [address] Historical LMR Provider 01/28/17 2 Alyssa Pham MD [address] [place] [address] Historical LMR Provider 01/28/17 2 Va Dominguez NP [address] [place] [address] Historical LMR Provider 01/28/17 2 documented as of this encounter Additional Source Comments The information contained in this document represents components of the legal health record. It is not the complete legal health record.[facility]
== END 2025-03-15 11:25 | disposition home or self-care (01) ==
LOC: HO.MRI 11:24
PROVIDERS: PCP Internal Medicine; Visit Provider Internal Medicine
DX: R29.898 Other symptoms and signs involving the musculoskeletal system (principal)
CPT/HCPCS: 72141